=== PATIENT | male | born 1960 | race Two or more races ===

== ENCOUNTER 2023-02-14 07:00 | Day surgery (SDC) | payer MEDICAID ==
[~2023-02-14] VITALS: Ht 180.3 cm; Wt 85.3 kg
[~2023-02-14 07:00] MED LIST: ASPI-543 PO; ATOR10TA52 PO; BACL10TA PO; BUPR-346 PO; CETI10TA2 PO; CHOL20007 PO; FERR325T24 PO; GABA-1250 PO; MAGN400T40 PO; METO10TA3 PO; METO25TA5 PO; MONT-8 PO; PANT40T PO; SUCR1SUS25 PO; TRAZ-227 PO
[2023-02-14] MEDS ORDERED: LIDOCAINE 2%HCL (LOCAL ANESTH.) INJ 20ML MDV ONE (07:37)
[2023-02-14] MEDS ORDERED: IODIXANOL 320MG/ML 100ML BTL IV ONE ×2 (07:37→07:56)
[2023-02-14] MEDS ORDERED: VERAPAMIL 2.5MG/ML INJ 2ML VIAL IV ONE (07:43)
[2023-02-14] MEDS ORDERED: fentaNYL CITRATE 100 MCG/2 ML VL ONE (07:43)
[2023-02-14] MEDS ORDERED: ANGIOMAX 250 MG VIAL IV ONE (07:43)
[2023-02-14] MEDS ORDERED: SODIUM CHL 0.9% 0 ML ONE (07:44)
[2023-02-14] MEDS ORDERED: MIDAZOLAM HCL 2MG/2ML 2ml VIAL (1mg/ml) ONE (07:44)
[2023-02-14] MEDS ORDERED: ATROPINE SULF 1 MG/10ml SYR ONE (07:53)
[2023-02-14] MEDS ORDERED: HEPARIN SODIUM (PORCINE) 5000 UNITS/ML 1ML VIAL ONE (08:36)
== END 2023-02-14 10:55 | disposition home or self-care (01) ==
LOC: CATH 07:00
PROVIDERS: ATTEND Internal Medicine Cardiovascular Disease
DX: I25.10 Atherosclerotic heart disease of native coronary artery without angina pectoris (principal); I10 Essential (primary) hypertension; M19.90 Unspecified osteoarthritis, unspecified site; F17.210 Nicotine dependence, cigarettes, uncomplicated; Z79.1 Long term (current) use of non-steroidal anti-inflammatories (NSAID); Z79.82 Long term (current) use of aspirin; Z79.899 Other long term (current) drug therapy; Z98.890 Other specified postprocedural states
CPT/HCPCS: 93458; C1725; C1769; C1894; J1644; J2250; J3010; Q9967; 99152

== ENCOUNTER 2024-08-20 12:53 | Inpatient (IN) | payer MEDICAID ==
[~2024-08-20] VITALS: Ht 177.8 cm; Wt 85.0 kg
--- NOTE | 2024-08-20 13:10 | ECG ---
[facility] Test Date: 2024-08-20 Test Time: 13:03:44 Pat Name: RANJITH OLSON Department: ER Room: Gender: Veterinarian Assistant: JASMYN : 1960 Requested By: FELICITY HESS Order Number: [id number] Reading MD: Omega Martines Measurements Intervals [place] Rate: 114 P: 73 MI: 166 QRS: 47 QRSD: 79 T: 62 QT: 326 QTc: 449 Interpretive Statements Sinus tachycardia Consider left atrial enlargement Abnormal R-wave progression, early transition Electronically Signed On 08-20-2024 13:48:13 PDT by Omega Martines Please click the below link to view image of tracing.
--- NOTE | 2024-08-20 13:11 | ED.PDOC ---
History of Present Illness HPI Comments 64 year old male presents to the ED with chief complaint of ETOH withdrawals. Patient reports that his last drink of beer and whiskey was 5 days ago, normally drinking heavily. Patient relays that since then he has been experiencing tremors with associated left sided chest pain and generalized weakness. Patient denies any N/V, abdominal pain, SOB, or headache. Chief Complaint: Withdrawal Time Seen by MD: 13:09 Reviewed Notes: Nurses Notes, Medications, Allergies Allergies: Coded Allergies: NO KNOWN ALLERGIES (Unverified , 08/20/24) Home Meds Reported Medications Metoclopramide Hcl (Metoclopramide Hcl) 10 Mg Tab, 10 MG PO BID for GERD for 30 Days, MG 02/12/23 Atorvastatin Calcium (ATORVASTATIN CALCIUM) 10 Mg Tab, 1 TAB PO DAILY for DYSLIPIDEMIA, #30 TAB 5 Refills 02/12/23 Aspirin (Aspir-Low) 81 Mg Tab, 81 MG PO DAILY for CLOT PREVENTION, MG 02/12/23 Metoprolol Tartrate (Metoprolol Tartrate) 25 Mg Tab, 25 MG PO BID for HTN for 30 Days, MG 02/12/23 Magnesium Oxide (MAGNESIUM OXIDE) 400 Mg Tab, 1 TAB PO DAILY for SUPPLEMENT, #30 TAB 5 Refills 02/12/23 Sucralfate (Sucralfate) 1 Gm/10 Ml Nany, 1 GM PO QID for GERD, GM 02/12/23 Bupropion Hcl (Bupropion Hcl) 100 Mg Tab, 300 MG PO Q8HR for ANXIETY, MG 02/12/23 Trazodone Hcl (Trazodone Hcl) 50 Mg Tab, 50 MG PO DAILY for INSOMNIA, MG 02/12/23 Montelukast Sodium (MONTELUKAST SODIUM) 10 Mg Tab, 1 TAB PO DAILY for ALLERGIES, #30 TAB 5 Refills 02/12/23 Pantoprazole Sodium Sesquihydr (Pantoprazole Sodium) 40 Mg Tab, 40 MG PO BID for GERD, TAB 02/12/23 Cholecalciferol (VITAMIN D3) 2,000 Unit Tab, 1 TAB PO DAILY for SUPPLEMENT, #30 TAB 5 Refills 02/12/23 Cetirizine Hcl (Kls Aller-Celestina) 10 Mg Tab, 1 TAB PO DAILY for ALLERGIES, #30 TAB 3 Refills 02/12/23 Ferrous Sulfate (Ferrous Sulfate) 325 Mg Tab, 325 MG PO DAILY for LOW IRON, MG 02/12/23 Baclofen (Baclofen) 10 Mg Tab, 10 MG PO TID PRN for BACK PAIN, MG 02/12/23 Gabapentin (Gabapentin) 300 Mg Cap, 300 MG PO DAILY for NEUROPATHY, MG 02/12/23 Information Source: Patient Mode of Arrival: Wheelchair Severity: Moderate Timing: Days Duration: Since onset Prehospital treatment: None Past Medical History PAST MEDICAL HISTORY: Denies Surgical History: Denies all surgeries Family History Family History: Reviewed,noncontributory to illness Social History Smoker: Non-Smoker Alcohol: Heavy Drugs: Denies Drug Use Lives In: Home Constitutional: reports: weakness; denies: chills, diaphoresis, fatigue, fever, malaise, sweats, others EENTM: denies: blurred vision, double vision, ear bleeding, ear discharge, ear drainage, ear pain, ear ringing, eye pain, eye redness, hearing loss, mouth pain, mouth swelling, nasal discharge, nose bleeding, nose congestion, nose pain, photophobia, tearing, throat pain, throat swelling, voice changes, others Respiratory: denies: cough, hemoptysis, orthopnea, SOB at rest, shortness of breath, SOB with excertion, stridor, wheezing, others Cardiovascular: reports: chest pain; denies: dizzy spells, diaphoresis, Dyspnea on exertion, edema, irregular heart beat, left arm pain, lightheadedness, palpitations, PND, syncope, others Gastrointestinal: denies: abdomen distended, abdominal pain, blood streaked bowels, constipated, diarrhea, dysphagia, difficulty swallowing, hematemesis, melena, nausea, poor appetite, poor fluid intake, rectal bleeding, rectal pain, vomiting, others Genitourinary: denies: burning, dysuria, flank pain, frequency, hematuria, incontinence, penile discharge, penile sore, pain, testicle pain, testicle swelling, urgency, others Neurological: reports: tremors; denies: dizziness, fainting, headache, left sided numbness, left sided weakness, numbness, paresthesia, pre-existing deficit, right sided numbness, right sided weakness, seizure, speech problems, tingling, weakness, others Musculoskeletal: denies: back pain, gout, joint pain, joint swelling, muscle pain, muscle stiffness, neck pain, others Integumetry: denies: bruises, change in color, change in hair/nails, dryness, laceration, lesions, lumps, rash, wounds, others Allergic/Immunocompromised: denies: Difficulty Healing, Frequent Infections, Hives, Itching, others Hematologic/Lymphatic: denies: anemia, blood clots, easy bleeding, easy bruising, swollen glands, others Endocrine: denies: excessive hunger, excessive sweating, excessive thirst, excessive urination, flushing, intolerance to cold, intolerance to heat, un explained weight gain, unexplained weight loss, others Psychiatric: denies: anxiety, bipolar disorder, depression, hopeless, panic disorder, schizophrenia, sleepless, suicidal, others All Other Systems: Reviewed and Negative Physical Exam General Appearance: Moderate Distress, Normal HEENT: Normal ENT Inspection, PERRL/EOMI Neck: Full Range of Motion, Non-Tender, Normal, Normal Inspection Respiratory: Chest Non-Tender, Lungs Clear, No Accessory Muscle Use, No Respiratory Distress, Normal Breath Sounds Cardiovascular: No Edema, No JVD, No Murmur, No Gallop, Normal Peripheral Pulses, Tachycardia Breast Exam: Deferred Gastrointestinal: No Organomegaly, Non Tender, No Pulsatile Mass, Normal Bowel Sounds, Soft Genitalia: Deferred Pelvic: Deferred Rectal: Deferred Extremities: No calf tenderness, Normal capillary refill, Normal inspection, Normal range of motion, Non-tender, No pedal edema Musculoskeletal : Apperance: Normal Neurologic: Alert, router machine operator II-XII nml as Tested, No Motor Deficits, Normal Affect, Normal Mood, No Sensory Deficits Cerebellar Function: NOT DONE Reflexes: NOT DONE Skin: Dry, Normal Color, Warm Peripheral Pulses: 3+ Radial (R), 3+ Radial (L) Lymphatic: No Adenopathy Was a procedure done? Was a procedure done?: No EKG EKG : Pulse Rate (adult): 114 [place]: Normal Cardiac Rhythm: ST Block: None Hypertrophy: None ST: Normal Differential Dx Considerations may include: ETOH withdrawal X-Ray, Labs, Meds, VS Vital Signs Date Time Temp Pulse Resp B/P (MAP) Pulse Ox O2 Delivery O2 Flow Rate FiO2 08/20/24 13:19 98.4 109 17 142/86 (104) 98 98.4 08/20/24 13:19 109 17 98 Room Air 08/20/24 13:11 114 08/20/24 13:03 114 08/20/24 13:02 98.1 118 20 154/97 (116) 99 98.1 Lab Test 08/20/24 13:43 08/20/24 13:00 Range/Units White Blood Count 5.1 4.4-10.8 10^3/uL Red Blood Count 4.29 L 4.5-5.90 10^6/uL Hemoglobin 12.6 L 13.5-17.5 g/dL Hematocrit 37.9 L 41.0-53.0 % Mean Corpuscular Volume 88.5 80.0-100.0 fL Mean Corpuscular Hemoglobin 29.4 28.0-32.0 pg Mean Corpuscular Hemoglobin Concent 33.2 32.0-36.0 g/dL Red Cell Distribution Width 16.8 H 11.8-14.3 % Platelet Count 166 140-450 10^3/uL Mean Platelet Volume 7.1 6.9-10.8 fL Neutrophils (%) (Auto) 80.7 H 37.0-80.0 % Lymphocytes (%) (Auto) 8.0 L 10.0-50.0 % Monocytes (%) (Auto) 10.8 0.0-12.0 % Eosinophils (%) (Auto) 0.0 0.0-7.0 % Basophils (%) (Auto) 0.5 0.0-2.0 % Neutrophils # (Auto) 4.1 1.6-8.6 10 ^3/uL Lymphocytes # (Auto) 0.4 0.4-5.4 10 ^3/uL Monocytes # (Auto) 0.6 0-1.3 10 ^3/uL Eosinophils # (Auto) 0 0-0.8 10 ^3/uL Basophils # (Auto) 0 0-0.2 10 ^3/uL Nucleated Red Blood Cells 0.1 % Sodium Level Pending Potassium Level Pending Chloride Level Pending Carbon Dioxide Level Pending Anion Gap Pending Blood Urea Nitrogen Pending Creatinine Pending Glomerular Filtration Rate Calc Pending BUN/Creatinine Ratio Pending Serum Glucose Pending Calcium Level Pending Plasma/Serum Blood Alcohol Pending POC Glucose 107 H 70-106 mg/dl Current Medications Medications (Trade) Dose Ordered Sig/Alon Route Start Time Stop Time Status Last Admin Sodium Chloride 1,000 ml @ 1,000 mls/hr Q1H ONCE IV 4/18/25 13:30 08/20/24 14:29 08/20/24 13:23 Thiamine HCl 100 mg ONCE ONCE IV 08/20/24 13:30 08/20/24 13:31 DC 08/20/24 13:58 Sodium Chloride 1,000 ml @ 1,000 mls/hr Q1H ONCE IV 08/20/24 13:30 08/20/24 14:29 08/20/24 13:34 Lorazepam (Ativan Inj) 1 mg ONCE ONCE IV 08/20/24 13:30 08/20/24 13:31 DC 08/20/24 13:58 Patient alert. Vitals stable. He is withdrawing. Establish intravenous access. Was given fluids. Was given thiamine. Was given Ativan. He is tachycardic. Blood pressure elevated. Counseled patient effects of drinking for 15 minutes. Reviewed his history. Explained to the patient. EKG reviewed does not show any acute changes. Time of 1ST Reevaluation: 14:09 Reevaluation 1ST: Unchanged Patient Education/Counseling: Diagnosis, Treatment Family Education/Counseling: No Family Present Additional Information The following tests were ordered, and results were reviewed by me: CBC, BMP, ETOH, EKG Additional Information was gathered from interviewing the following independent historians: None I reviewed and agreed with the following test results read by other providers: None I discussed treatment and results with medical personnel and: Patient Comprehensive systems review obtained and negative except for what is stated in the HPI. Departure 1 Departure Time of Disposition: 14:00 Impression: Primary Impression: Alcohol withdrawal Qualified Codes: F10.930 - Alcohol use, unspecified with withdrawal, uncomplicated Additional Impression: HTN (hypertension) Qualified Codes: I10 - Essential (primary) hypertension Disposition: ADMITTED INPATIENT Admit to: Med Surg Condition: Guarded Critical Care Note Critical Care Time?: No Stability Stability form required: No Heart Score Heart Score: Heart Score Response (Comments) Value History N/A 0 EKG N/A 0 Age N/A 0 Risk Factors N/A 0 Troponin N/A 0 Total 0 I personally scribed for FELICITY HESS MD ([email or web address]) on 08/20/24 at 13:11. Electronically submitted by Talon Guillermo ([email or web address]). I personally scribed for FELICITY HESS MD ([email or web address]) on 08/20/24 at 13:51. Electronically submitted by Talon Guillermo ([email or web address]). FELICITY HESS MD Aug 20, 2024 13:11
[2024-08-20] MEDS: SODIUM CHLORIDE 0.9% 1,000 ML IV ONE ×3 (13:23→13:37)
[2024-08-20] MEDS: THIAMINE 100mg/ml INJ (200mg/2ml VIAL) IV ONE ×2 (13:58→16:16)
[2024-08-20] MEDS: LORazepam 2MG/ML-1ML VIAL IV ONE (13:58)
[2024-08-20 13:59] LABS: Basophils # (auto) 0 10 ^3/uL (0-0.2); Basophils % (auto) 0.5 % (0.0-2.0); Eosinophils # (auto) 0 10 ^3/uL (0-0.8); Hematocrit 37.9 % (41.0-53.0); Hemoglobin 12.6 g/dL (13.5-17.5); Lymphocytes # (auto) 0.4 10 ^3/uL (0.4-5.4); Mean Corpuscular Hemoglobin 29.4 pg (28.0-32.0); Mean Corpuscular Hgb Conc. 33.2 g/dL (32.0-36.0); Mean Corpuscular Volume 88.5 fL (80.0-100.0); Monocytes # (auto) 0.6 10 ^3/uL (0-1.3); Monocytes % (auto) 10.8 % (0.0-12.0); Neutrophils # (auto) 4.1 10 ^3/uL (1.6-8.6); Neutrophils % (auto) 80.7 % (37.0-80.0); Nucleated Red Blood Cells % 0.1 %; Platelet Count (auto) 166 10^3/uL (140-450); Red Blood Cells 4.29 10^6/uL (4.5-5.90); Red Cell Distribution Width 16.8 % (11.8-14.3); White Blood Cell 5.1 10^3/uL (4.4-10.8)
[2024-08-20 14:09] VITALS: PULSE 108; RESP 14; O2SAT 96
[2024-08-20 14:10] LABS: Potassium 4.6 mmol/L (3.5-5.1)
[2024-08-20 14:11] LABS: Anion Gap 16 (5-15); Carbon Dioxide 23 mmol/L (20-31)
[2024-08-20 14:15] LABS: Chloride 91 mmol/L (98-107); Sodium 130 mmol/L (136-145)
[2024-08-20 14:16] LABS: BUN/Creatinine Ratio 26.9 (10.0-20.0); Glucose 97 mg/dL (74-106)
[2024-08-20 14:17] LABS: Blood Urea Nitrogen 43 mg/dL (9-23)
[2024-08-20] MEDS ORDERED: FOLIC ACID 1 mg/0.2ml INJECTION INJ ONE (15:45)
[2024-08-20] MEDS: MAGNESIUM SULFATE 1GM/100ML 100 ML IV ONE (16:20)
[2024-08-20] MEDS ORDERED: chlordiazePOXIDE HCL 25 MG CAP PO PRN (22:15)
--- NOTE | 2024-08-20 23:01 | DVHPNRES ---
Progress Note Date Seen: Aug 20, 2024 Resident Creating Document: GLORIA MOBLEY RESIDENT Has the PT tested + for MRSA If YES, has PT been informed?: No Medical Necessity Reason Pt with a Central, PICC or Fol: No Medical Necessity Reason 64 year old male presents to the ED with chief complaint of ETOH withdrawals. Patient reports that his last drink of beer and whiskey was 5 days ago, normally drinking heavily. Patient relays that since then he has been experiencing tremors with associated left sided chest pain and generalized weakness. Patient denies any N/V, abdominal pain, SOB, or headache. Subjective Review of Systems Unable to obtain thorough review of systems from this patient also patient was intoxicated and was limited or has poverty of words. Constitutional: Denies fever no chills no feeling of malaise HEENT: Denies headache, ear pain, ear discharges, conjunctivitis, nasal discharge throat pain Cardiovascular: Denies chest pain, palpitation, orthopnea, PND, or pedal edema Respiratory: Denies shortness of breath, cough cough, sputum production, hemoptysis, GI: Denies abdominal pain, nausea, vomiting, diarrhea, hematemesis, hematochezia, : Denies frequency, urgency, hematuria, Endocrine: Denies unintentional weight gain or weight loss, feeling of hot flashes, Devyn: Denies easy bruising, bleeding disorders, epistaxis Musculoskeletal: Denies joint pains, muscle aches Psych: No evidence of depression, jorge, suicidal ideation Objective vital signs Vital Sign Date Time Temp Pulse Resp B/P (MAP) Pulse Ox O2 Delivery O2 Flow Rate FiO2 08/20/24 19:44 98.5 126 16 133/80 (97) 96 98.5 08/20/24 14:09 Nasal Cannula* 2 28 medications Current Medications Medications Dose Ordered Sig/Alon Route Start Time Stop Time Status Last Admin Dose Admin Chlordiazepoxide HCl 25 mg Q6HPRN PRN PO 08/20/24 22:15 Examination General Appearance: Alert, Oriented X3, Cooperative, obvious Tremors HEENT: Atraumatic, PERRLA, EOMI, Mucous membrane moist/pink Respiratory: Clear to auscultation, Normal air movement Cardiovascular: Regular rate, Normal S1, Normal S2, No murmurs, no chest wall tenderness Abdominal: NO distention, no tenderness, bowel sounds present, no scars noted Extremities: No clubbing, No cyanosis, No edema, Normal pulses, No tenderness/swelling Skin: No rashes, No breakdown, No significant lesion Neuro: Normal gait, Normal speech, Strength at 5/5 X4 ext, Normal tone, Sensation intact, Cranial nerves 3-12 NL, Reflexes 2+ Psych/Mental Status: menitioned auditory hallucination but is not new CIWA: Nausea; +6 Tremors: 5 Visual haluccination: 4 paroxysmal sweats +4 - Total: 19 laboratory and microbiology Laboratory Tests 08/20/24 13:43 Test 08/20/24 13:43 Range/Units Serum Glucose 97 74-106 mg/dL Problem List/Assessment/Plan Problem List/Assessment/Plan Assessment Alcohol withdrawal --> 2 bottles of Reagan Anthony in 3 days --> CIWA score of 19 --> Ativan q.2 hours PRN until CIWA score less than 8 --> Vitamin B12 --> Folate daily Hyponatremia --> Na: 130 --> Monitor electrolytes closely Hypertension --> 159/99--> 133/80 Nausea --> Pending EKG --> zofran if qtc is not prolong Normocytic Anemia --> hb;12.6 --> RDW: 16.8 LAVERN likely due to VMN --> On fluid. --> reasses in the morning Urinalysis pending Urine drug test pending Goal of care discussed for more than 18 minute: Full code Case and plan discussed with Dr. Jose C Bruce discussed with: Patient My Orders My Orders Orders - GLORIA MOBLEY Procedure Category Date Status Time Admit ADMIT 08/20/24 Transmitted 15:38 Code Status CODE 08/20/24 Transmitted 15:38 Vital Signs [facility] 08/20/24 In Process 15:38 Review Orders With BRANDON 08/20/24 In Process Adm. 15:38 Notify Of Changes BRANDON 08/20/24 In Process From Base 15:38 Advance Directive [facility] 08/20/24 In Process 15:38 Urinalysis LAB 08/20/24 Logged 15:38 Patient Condition ORDERS 08/20/24 Transmitted 15:38 Allergies BRANDON 08/20/24 In Process 15:38 Drug Screen LAB 08/20/24 Logged 15:38 Notify Of Changes BRANDON 08/20/24 In Process From Base 15:38 GLORIA MOBLEY Aug 20, 2024 23:00
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
[2024-08-20 23:06] VITALS: BP 138/82; PULSE 96; RESP 20; TEMP 98.1; O2SAT 99
[2024-08-21] VITALS (11 sets, daily range): BP systolic 134–172; BP diastolic 62–108; PULSE 79–112; RESP 18–20; TEMP 97.6–98.6; O2SAT 96–100
[2024-08-21] MEDS: CYANOCOBALAMIN 500 MCG TAB PO ONE (00:29)
--- NOTE | 2024-08-21 02:37 | DVH ---
CHEST RADIOGRAPH Indication: rule out aspiration Technique: Single frontal view of the chest was obtained COMPARISON: None FINDINGS: Lines and Tubes: None Lungs: Clear Pleura: No effusion. No pneumothorax. Cardiomediastinal contours: Unremarkable Bones: Unremarkable IMPRESSION: 1. No acute disease.
[2024-08-21 05:49] LABS: Basophils # (auto) 0.1 10 ^3/uL (0-0.2); Basophils % (auto) 1.4 % (0.0-2.0); Eosinophils # (auto) 0 10 ^3/uL (0-0.8); Eosinophils % (auto) 0.5 % (0.0-7.0); Hematocrit 37.5 % (41.0-53.0); Hemoglobin 12.4 g/dL (13.5-17.5); Lymphocytes # (auto) 0.7 10 ^3/uL (0.4-5.4); Mean Corpuscular Hemoglobin 29.3 pg (28.0-32.0); Mean Corpuscular Hgb Conc. 33.2 g/dL (32.0-36.0); Mean Corpuscular Volume 88.3 fL (80.0-100.0); Monocytes # (auto) 0.6 10 ^3/uL (0-1.3); Monocytes % (auto) 13.1 % (0.0-12.0); Neutrophils # (auto) 3.4 10 ^3/uL (1.6-8.6); Nucleated Red Blood Cells % 0.3 %; Platelet Count (auto) 141 10^3/uL (140-450); Red Blood Cells 4.25 10^6/uL (4.5-5.90); Red Cell Distribution Width 16.4 % (11.8-14.3); White Blood Cell 4.9 10^3/uL (4.4-10.8)
[2024-08-21 06:14] LABS: Albumin 4.5 g/dL (3.2-4.8); Alkaline Phosphatase 104 U/L (46-116); Anion Gap 13 (5-15); BUN/Creatinine Ratio 24.8 (10.0-20.0); Calcium 9.2 mg/dL (8.7-10.4); Carbon Dioxide 24 mmol/L (20-31); Glucose 86 mg/dL (74-106); Potassium 3.7 mmol/L (3.5-5.1)
[2024-08-21 06:15] LABS: Alanine Aminotransferase 77 U/L (7-40); Aspartate Aminotransferase 142 U/L (13-40); Bilirubin, Total 1.4 mg/dL (0.2-1.0); Blood Urea Nitrogen 31 mg/dL (9-23); Chloride 97 mmol/L (98-107); Sodium 134 mmol/L (136-145)
[2024-08-21] MEDS: FOLIC ACID 1 MG in D5W 5% 50 ML INJ SCH (10:21)
[2024-08-21] MEDS: LORazepam 2MG/ML-1ML VIAL IV PRN (10:22)
[2024-08-21] MEDS: CYANOCOBALAMIN 500 MCG TAB PO SCH (10:22)
--- NOTE | 2024-08-21 12:44 | DVHPN2 ---
Reviewed: Care Plan, H&P, Labs, Medications, Previous Orders, Radiology Changes from previous H/P or p: No Changes Objective Vitals Vital Signs Date Time Temp Pulse Resp B/P (MAP) Pulse Ox O2 Delivery O2 Flow Rate FiO2 08/21/24 09:00 98.6 94 19 170/108 (128) 97 98.6 08/21/24 08:00 Room Air* 0 21 Intake/Output Intake and Output 08/21/24 07:00 Intake Total 2400 ml Balance 2400 ml Intake Oral 400 ml IV Total 2000 ml # Voids 2 # Bowel Movements 2 Medications Current Medications Medications Dose Ordered Sig/Alon Route Start Time Stop Time Status Last Admin Dose Admin Chlordiazepoxide HCl 25 mg Q6HPRN PRN PO 08/20/24 22:15 Hold Lorazepam 1 mg Q2HP PRN IV 08/20/24 23:00 08/21/24 10:22 1 MG Folic Acid 1 mg/ Magnesium Sulfate 8 meq/ Multivitamins 10 ml/Thiamine HCl 100 mg/Sodium Chloride 1,013.2 ml @ 126.247 mls/hr DAILY@1800 INJ 08/21/24 18:00 Cyanocobalamin 500 mcg DAILY PO 08/21/24 10:00 08/21/24 10:22 500 MCG Folic Acid 1 mg/ Dextrose 50.2 ml @ 200.8 mls/ hr DAILY INJ 08/21/24 10:00 08/21/24 10:21 200.8 MLS/HR Laboratory Results Laboratory Tests 08/21/24 05:03 Chemistry Test 08/20/24 13:43 08/21/24 05:03 Calcium Level 9.0 mg/dL (8.7-10.4) 9.2 mg/dL (8.7-10.4) Magnesium Level 1.8 mg/dL (1.6-2.6) Albumin 4.5 g/dL (3.2-4.8) Total Protein 7.0 g/dL (5.7-8.2) LFT Test 08/21/24 05:03 Alanine Aminotransferase (ALT) 77 U/L (7-40) H Alkaline Phosphatase 104 U/L (46-116) Aspartate Amino Transferase (AST) 142 U/L (13-40) H Total Bilirubin 1.4 mg/dL (0.2-1.0) H HgA1c, TSH Test 08/20/24 13:43 Hemoglobin A1c 5.0 % A1C (<5.7) Labs and/or images reviewed: Labs reviewed by me, Image(s) reviewed by me Assessment/Plan Assessment/Plan Acute alcoholic withdrawal Acute hyponatremia Hypertension Nausea LAVERN versus IPMN Acute dehydration: IV fluids Slightly elevated liver function tests probably secondary to chronic alcohol abuse Homeless: Social service consult Plan discussed with: Patient Date of Service: Aug 21, 2024 Billing Provider: EVA MARINA MD Common Visit Codes: [id number] INP/OBS CARE(HIGH) EVA MARINA MD Aug 21, 2024 12:44
[2024-08-21] MEDS: LACTATED RINGER'S 1,000 ML IV SCH (14:15)
[2024-08-21] MEDS: chlordiazePOXIDE HCL 25 MG CAP PO SCH (14:19)
[2024-08-21 14:42] LABS: INR 1.03 (0.9-1.15); Partial Thromboplastin Time 25.9 SEC (24.5-34.5); Prothrombin Time 10.9 sec (9.3-11.8)
[2024-08-21] MEDS: LOPERAMIDE HCL 2 MG CAP/TAB PO PRN (15:13)
[2024-08-21] MEDS: FOLIC ACID 1 MG, MAGNESIUM SULF SDV 50% 8 MEQ, MULTIPLE VITAMIN 10 ML, THIAMINE INJ 100... INJ SCH (17:30)
[2024-08-21] MEDS: FOLIC ACID 1 MG in D5W 5% 50 ML INJ ONE (21:27)
[2024-08-22] VITALS (9 sets, daily range): BP systolic 142–175; BP diastolic 78–103; PULSE 80–97; RESP 15–20; TEMP 97.1–98.2; O2SAT 95–98
--- NOTE | 2024-08-22 08:38 | DVHPN2 ---
Reviewed: Care Plan, H&P, Labs, Medications, Previous Orders, Radiology Changes from previous H/P or p: No Changes Objective Vitals Vital Signs Date Time Temp Pulse Resp B/P (MAP) Pulse Ox O2 Delivery O2 Flow Rate FiO2 08/22/24 05:00 97.1 90 19 142/96 (111) 96 97.1 08/21/24 19:30 Room Air* 0 21 Intake/Output Intake and Output 08/22/24 07:00 Intake Total 3263.40 ml Output Total 300 ml Balance 2963.40 ml Intake Oral 1000 ml IV Total 2263.40 ml Output Urine Total 300 ml # Voids 3 # Bowel Movements 2 Medications Current Medications Medications Dose Ordered Sig/Alon Route Start Time Stop Time Status Last Admin Dose Admin Chlordiazepoxide HCl 25 mg Q6HPRN PRN PO 08/20/24 22:15 Hold Lorazepam 1 mg Q2HP PRN IV 08/20/24 23:00 08/21/24 10:22 1 MG Folic Acid 1 mg/ Magnesium Sulfate 8 meq/ Multivitamins 10 ml/Thiamine HCl 100 mg/Sodium Chloride 1,013.2 ml @ 126.247 mls/hr DAILY@1800 INJ 08/21/24 18:00 08/21/24 17:30 126.247 MLS/HR Cyanocobalamin 500 mcg DAILY PO 08/21/24 10:00 08/21/24 10:22 500 MCG Folic Acid 1 mg/ Dextrose 50.2 ml @ 200.8 mls/ hr DAILY INJ 08/21/24 10:00 08/21/24 10:21 200.8 MLS/HR Chlordiazepoxide HCl 50 mg Q12HR PO 08/22/24 10:00 08/22/24 22:01 Chlordiazepoxide HCl 25 mg Q12HR PO 08/23/24 10:00 08/23/24 22:01 Chlordiazepoxide HCl 25 mg QAM PO 08/24/24 07:00 08/24/24 07:01 Lactated Ringer's 1,000 ml @ 125 mls/hr Q8H IV 08/21/24 14:15 08/22/24 05:08 125 MLS/HR Loperamide HCl 2 mg Q4HP PRN PO 08/21/24 14:30 08/21/24 21:23 2 MG Laboratory Results Laboratory Tests 08/21/24 05:03 Coagulation Test 08/21/24 14:15 Prothrombin Time 10.9 sec (9.3-11.8) Prothrombin Time INR 1.03 (0.9-1.15) Activated Partial Thromboplast Time 25.9 SEC (24.5-34.5) Labs and/or images reviewed: Labs reviewed by me, Image(s) reviewed by me Assessment/Plan Assessment/Plan Acute alcoholic withdrawal Acute hyponatremia Hypertension Nausea LAVERN versus VMN Acute dehydration: IV fluids Slightly elevated liver function tests probably secondary to chronic alcohol abuse Homeless: Social service consult Plan discussed with: Patient My Orders Orders - EVA MARINA MD Procedure Category Date Status Time Chlordiazepoxide Hcl PHA 08/22/24 In Process Capsule (Librium Ca 10:00 Chlordiazepoxide Hcl PHA 08/23/24 In Process Capsule (Librium Ca 10:00 Chlordiazepoxide Hcl PHA 08/24/24 In Process Capsule (Librium Ca 07:00 Cardiac DIET 08/21/24 Transmitted Diet-2gna,Lofat,Lochol Dinner Lactated Ringer's PHA 08/21/24 In Process 14:15 Loperamide Capsule PHA 08/21/24 In Process (Imodium Capsule) 14:30 * Pmp Certified Project Manager CONS 08/21/24 Transmitted Consult Date of Service: Aug 22, 2024 Billing Provider: EVA MARINA MD Common Visit Codes: [id number] INP/OBS CARE(HIGH) EVA MARINA MD Aug 22, 2024 08:38
[2024-08-22] MEDS: chlordiazePOXIDE HCL 25 MG CAP PO SCH (09:57)
[2024-08-22] MEDS: THIAMINE HCL 100 MG TAB PO ONE (16:35)
[2024-08-22] MEDS: FOLIC ACID 1 MG TAB PO ONE (16:35)
[2024-08-22] MEDS: MAGNESIUM OXIDE 400 MG TAB PO ONE (16:36)
[2024-08-22] MEDS: MULTIPLE VITAMIN TAB PO ONE (16:36)
[2024-08-22] MEDS: MELATONIN 5 MG TAB PO ONE (23:35)
[2024-08-23] VITALS (9 sets, daily range): BP systolic 133–166; BP diastolic 93–111; PULSE 68–102; RESP 16–18; TEMP 97.3–98.1; O2SAT 94–98
[2024-08-23] MEDS: cloNIDine HCL 0.1 MG TAB PO PRN (04:27)
[2024-08-23 07:54] LABS: Basophils # (auto) 0 10 ^3/uL (0-0.2); Basophils % (auto) 0.6 % (0.0-2.0); Eosinophils # (auto) 0.1 10 ^3/uL (0-0.8); Hematocrit 32.7 % (41.0-53.0); Hemoglobin 11.1 g/dL (13.5-17.5); Lymphocytes # (auto) 0.9 10 ^3/uL (0.4-5.4); Lymphocytes % (auto) 27.5 % (10.0-50.0); Mean Corpuscular Hemoglobin 29.5 pg (28.0-32.0); Mean Corpuscular Hgb Conc. 33.9 g/dL (32.0-36.0); Mean Corpuscular Volume 87.1 fL (80.0-100.0); Monocytes # (auto) 0.4 10 ^3/uL (0-1.3); Monocytes % (auto) 11.9 % (0.0-12.0); Neutrophils # (auto) 1.8 10 ^3/uL (1.6-8.6); Nucleated Red Blood Cells % 0.1 %; Platelet Count (auto) 125 10^3/uL (140-450); Red Blood Cells 3.76 10^6/uL (4.5-5.90); Red Cell Distribution Width 16.2 % (11.8-14.3); White Blood Cell 3.2 10^3/uL (4.4-10.8)
[2024-08-23 08:09] LABS: Alkaline Phosphatase 81 U/L (46-116); Anion Gap 9 (5-15); BUN/Creatinine Ratio 17.4 (10.0-20.0); Blood Urea Nitrogen 16 mg/dL (9-23); Calcium 9.1 mg/dL (8.7-10.4); Carbon Dioxide 29 mmol/L (20-31); Chloride 102 mmol/L (98-107); Sodium 140 mmol/L (136-145)
[2024-08-23 08:10] LABS: Albumin 3.4 g/dL (3.2-4.8); Bilirubin, Total 0.6 mg/dL (0.2-1.0)
[2024-08-23 08:11] LABS: Alanine Aminotransferase 79 U/L (7-40); Aspartate Aminotransferase 82 U/L (13-40); Glucose 107 mg/dL (74-106); Potassium 3.3 mmol/L (3.5-5.1); Total Protein 5.3 g/dL (5.7-8.2)
--- NOTE | 2024-08-23 08:22 | ECG ---
[facility] Test Date: 2024-08-21 Test Time: 00:50:49 Pat Name: RANJITH OLSON Department: Respiratoy Room: 0214T B Gender: M Early Intervention Specialist: MARY : 1960 Requested By: GLORIA MOBLEY Order Number: [id number] Reading MD: Omega Martines Measurements Intervals [place] Rate: 97 P: 54 MS: 165 QRS: 22 QRSD: 104 T: 39 QT: 366 QTc: 465 Interpretive Statements Sinus rhythm Consider left atrial enlargement Abnormal R-wave progression, early transition Electronically Signed On 08-25-2024 12:13:09 PDT by Omega Martines Please click the below link to view image of tracing.
--- NOTE | 2024-08-23 08:22 | DVHPN2 ---
Reviewed: Care Plan, H&P, Labs, Medications, Previous Orders, Radiology Changes from previous H/P or p: No Changes Objective Vitals Vital Signs Date Time Temp Pulse Resp B/P (MAP) Pulse Ox O2 Delivery O2 Flow Rate FiO2 08/23/24 05:27 158/111 08/23/24 05:00 97.3 84 18 97 97.3 08/22/24 20:00 Room Air* 0 21 Intake/Output Intake and Output 08/23/24 07:00 Intake Total 2260 ml Output Total 1625 ml Balance 635 ml Intake Oral 1260 ml IV Total 1000 ml Output Urine Total 1625 ml # Voids 3 # Bowel Movements 1 Medications Current Medications Medications Dose Ordered Sig/Alon Route Start Time Stop Time Status Last Admin Dose Admin Chlordiazepoxide HCl 25 mg Q6HPRN PRN PO 08/20/24 22:15 Hold Lorazepam 1 mg Q2HP PRN IV 08/20/24 23:00 08/21/24 10:22 1 MG Cyanocobalamin 500 mcg DAILY PO 08/21/24 10:00 08/22/24 09:57 500 MCG Chlordiazepoxide HCl 25 mg Q12HR PO 08/23/24 10:00 08/23/24 22:01 Chlordiazepoxide HCl 25 mg QAM PO 08/24/24 07:00 08/24/24 07:01 Lactated Ringer's 1,000 ml @ 125 mls/hr Q8H IV 08/21/24 14:15 08/23/24 06:10 125 MLS/HR Loperamide HCl 2 mg Q4HP PRN PO 08/21/24 14:30 08/22/24 21:41 2 MG Clonidine HCl 0.2 mg Q6HP PRN PO 08/22/24 08:45 08/23/24 04:27 0.2 MG Folic Acid 1 mg DAILY PO 08/23/24 10:00 Multivitamins 1 tab DAILY PO 08/23/24 10:00 Magnesium Oxide 400 mg DAILY PO 08/23/24 10:00 Thiamine HCl 100 mg DAILY PO 08/23/24 10:00 Laboratory Results Laboratory Tests 08/23/24 06:25 Chemistry Test 08/23/24 06:25 Albumin 3.4 g/dL (3.2-4.8) Calcium Level 9.1 mg/dL (8.7-10.4) Total Protein 5.3 g/dL (5.7-8.2) L LFT Test 08/23/24 06:25 Alanine Aminotransferase (ALT) 79 U/L (7-40) H Alkaline Phosphatase 81 U/L (46-116) Aspartate Amino Transferase (AST) 82 U/L (13-40) H Total Bilirubin 0.6 mg/dL (0.2-1.0) Labs and/or images reviewed: Labs reviewed by me, Image(s) reviewed by me Assessment/Plan Assessment/Plan Acute alcoholic withdrawal : Improving Acute hyponatremia Hypertension Nausea LAVERN versus VMN Acute dehydration: IV fluids Slightly elevated liver function tests probably secondary to chronic alcohol abuse: Consult for GI Dr. Kiran Hernández, ordered hep panel Homeless: Social service consult Plan discussed with: Patient My Orders Orders - EVA MARINA MD Procedure Category Date Status Time Clonidine Hcl Tablet PHA 08/22/24 In Process (Catapres Tablet) 08:45 Comprehensive LAB 08/23/24 Transmitted Hepatitis Panel 08:16 Date of Service: Aug 23, 2024 Billing Provider: EVA MARINA MD Common Visit Codes: [id number] INP/OBS CARE(HIGH) EVA MARINA MD Aug 23, 2024 08:22
[2024-08-23] MEDS: POTASSIUM EFFERVESENT TAB 25 MEQ PO ONE (08:55)
[2024-08-23] MEDS: FOLIC ACID 1 MG TAB PO SCH (08:56)
[2024-08-23] MEDS: MULTIPLE VITAMIN TAB PO SCH (08:56)
[2024-08-23] MEDS: THIAMINE HCL 100 MG TAB PO SCH (08:56)
[2024-08-23] MEDS: chlordiazePOXIDE HCL 25 MG CAP PO SCH (08:56)
[2024-08-23] MEDS: MAGNESIUM OXIDE 400 MG TAB PO SCH (08:56)
[2024-08-23 10:25] LABS: Hepatitis B Core Total AB Negative (Negative)
[2024-08-23 10:53] LABS: Hepatitis A Total Antibody Negative (Negative); Hepatitis B Surface Antibody Negative (Negative); Hepatitis B Surface Antigen Negative (Negative); Hepatitis C Antibody Negative (Negative)
[2024-08-23] MEDS: PANTOPRAZOLE 40 MG/10 ML VIAL INJ IV SCH (12:29)
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
--- NOTE | 2024-08-23 15:56 | DVH ---
INDICATION: elevated liver tests TECHNIQUE: Multiple real-time sonographic images were obtained of the right upper quadrant. COMPARISON: None FINDINGS: The liver demonstrates heterogeneous echotexture without focal mass lesions. The liver sophia ures 17cm. There is no intrahepatic or extrahepatic ductal dilatation. The common duct measures 0. 4 mm. The gallbladder is without evidence of stone or sludge. The gallbladder wall measures 0.2 mm and is within normal limits. The right kidney measures 9 cm. The right kidney is normal in contour, size, and shape. The echogeni city is normal. There is no hydronephrosis. The pancreas is not well visualized due to overlying bowel gas. IMPRESSION: No sonographic evidence of gallstones or acute cholecystitis. Hepatic steatosis.
[2024-08-23] MEDS: HYDROcodone-ACET 7.5/325MG TAB PO ONE (21:50)
[2024-08-23] MEDS: MELATONIN 5 MG TAB PO ONE (21:50)
[2024-08-23] MEDS ORDERED: MELATONIN 5 MG TAB PO ONE (22:00)
[2024-08-24 00:24] VITALS: BP 153/92; PULSE 90; RESP 16; TEMP 98.1; O2SAT 99
[2024-08-24 05:00] VITALS: BP 132/83; PULSE 76; RESP 18; TEMP 98.1; O2SAT 97
[2024-08-24] MEDS: chlordiazePOXIDE HCL 25 MG CAP PO SCH (06:11)
[2024-08-24 07:36] VITALS: PULSE 60
[2024-08-24 08:00] VITALS: O2SAT 96
[2024-08-24] MEDS ORDERED: THIA100T26 PO (08:28)
[2024-08-24] MEDS ORDERED: PANT40T PO (08:28)
[2024-08-24] MEDS ORDERED: CHL25C PO (08:28)
[2024-08-24] MEDS ORDERED: FOLI-119 PO (08:28)
[2024-08-24] MEDS ORDERED: MULT-1018 PO (08:28)
--- NOTE | 2024-08-24 08:30 | DVHPN2 ---
Reviewed: Care Plan, H&P, Labs, Medications, Previous Orders, Radiology Changes from previous H/P or p: No Changes Objective Vitals Vital Signs Date Time Temp Pulse Resp B/P (MAP) Pulse Ox O2 Delivery O2 Flow Rate FiO2 08/24/24 05:00 98.1 76 18 132/83 (99) 97 98.1 08/23/24 20:00 Room Air* 0 21 Intake/Output Intake and Output 08/24/24 07:00 Intake Total 3058 ml Output Total 1275 ml Balance 1783 ml Intake Oral 1308 ml IV Total 1750 ml Stool Total 1275 ml # Voids 3 Medications Current Medications Medications Dose Ordered Sig/Alon Route Start Time Stop Time Status Last Admin Dose Admin Chlordiazepoxide HCl 25 mg Q6HPRN PRN PO 08/20/24 22:15 Hold Lorazepam 1 mg Q2HP PRN IV 08/20/24 23:00 08/21/24 10:22 1 MG Cyanocobalamin 500 mcg DAILY PO 08/21/24 10:00 08/23/24 08:56 500 MCG Lactated Ringer's 1,000 ml @ 125 mls/hr Q8H IV 08/21/24 14:15 08/24/24 00:12 125 MLS/HR Loperamide HCl 2 mg Q4HP PRN PO 08/21/24 14:30 08/23/24 08:58 2 MG Clonidine HCl 0.2 mg Q6HP PRN PO 08/22/24 08:45 08/23/24 04:27 0.2 MG Folic Acid 1 mg DAILY PO 08/23/24 10:00 08/23/24 08:56 1 MG Multivitamins 1 tab DAILY PO 08/23/24 10:00 08/23/24 08:56 1 TAB Magnesium Oxide 400 mg DAILY PO 08/23/24 10:00 08/23/24 08:56 400 MG Thiamine HCl 100 mg DAILY PO 08/23/24 10:00 08/23/24 08:56 100 MG Pantoprazole Sodium 40 mg DAILY IV 08/23/24 11:15 08/23/24 12:29 40 MG Laboratory Results Laboratory Tests 08/23/24 06:25 Labs and/or images reviewed: Labs reviewed by me, Image(s) reviewed by me Assessment/Plan Assessment/Plan Acute alcoholic withdrawal : Resolved Acute hyponatremia Hypertension Nausea LAVERN versus VMN Acute dehydration: IV fluids Slightly elevated liver function tests probably secondary to chronic alcohol abuse: Consult for GI Dr. Kiran Hernández appreciated, Hepatitis panel negative, Liver ultrasound negative Plan discussed with: Patient My Orders Orders - EVA MARINA MD Procedure Category Date Status Time * Sausage Inspector CONS 08/24/24 Transmitted Consult Date of Service: Aug 24, 2024 Billing Provider: EVA MARINA MD Common Visit Codes: [id number] INP/OBS CARE(HIGH) EVA MARINA MD Aug 24, 2024 08:29
--- NOTE | 2024-08-24 08:33 | DVHDS2 ---
Discharge Summary Date of Admission Aug 20, 2024 at 15:38 Date of Discharge: Aug 24, 2024 Admitting Diagnosis Abdominal pain nausea and vomiting Wounds: None Labs/Diagnostic Data: Laboratory Results Test 08/23/24 06:25 08/21/24 14:15 08/20/24 13:43 08/20/24 13:00 White Blood Count 3.2 10^3/uL (4.4-10.8) Red Blood Count 3.76 10^6/uL (4.5-5.90) Hemoglobin 11.1 g/dL (13.5-17.5) Hematocrit 32.7 % (41.0-53.0) Mean Corpuscular Volume 87.1 fL (80.0-100.0) Mean Corpuscular Hemoglobin 29.5 pg (28.0-32.0) Mean Corpuscular Hemoglobin Concent 33.9 g/dL (32.0-36.0) Red Cell Distribution Width 16.2 % (11.8-14.3) Platelet Count 125 10^3/uL (140-450) Mean Platelet Volume 7.7 fL (6.9-10.8) Neutrophils (%) (Auto) 57.0 % (37.0-80.0) Lymphocytes (%) (Auto) 27.5 % (10.0-50.0) Monocytes (%) (Auto) 11.9 % (0.0-12.0) Eosinophils (%) (Auto) 3.0 % (0.0-7.0) Basophils (%) (Auto) 0.6 % (0.0-2.0) Neutrophils # (Auto) 1.8 10 ^3/uL (1.6-8.6) Lymphocytes # (Auto) 0.9 10 ^3/uL (0.4-5.4) Monocytes # (Auto) 0.4 10 ^3/uL (0-1.3) Eosinophils # (Auto) 0.1 10 ^3/uL (0-0.8) Basophils # (Auto) 0 10 ^3/uL (0-0.2) Nucleated Red Blood Cells 0.1 % Sodium Level 140 mmol/L (136-145) Potassium Level 3.3 mmol/L (3.5-5.1) Chloride Level 102 mmol/L (98-107) Carbon Dioxide Level 29 mmol/L (20-31) Anion Gap 9 (5-15) Blood Urea Nitrogen 16 mg/dL (9-23) Creatinine 0.92 mg/dL (0.700-1.30) Glomerular Filtration Rate Calc 93 mL/min (>90) BUN/Creatinine Ratio 17.4 (10.0-20.0) Serum Glucose 107 mg/dL (74-106) Calcium Level 9.1 mg/dL (8.7-10.4) Total Bilirubin 0.6 mg/dL (0.2-1.0) Aspartate Amino Transferase (AST) 82 U/L (13-40) Alanine Aminotransferase (ALT) 79 U/L (7-40) Alkaline Phosphatase 81 U/L (46-116) Total Protein 5.3 g/dL (5.7-8.2) Albumin 3.4 g/dL (3.2-4.8) Hepatitis A Antibody Total Negative (Negative) Hepatitis B Surface Antigen Negative (Negative) Hepatitis B Surface Antibody Negative (Negative) Hepatitis B Core Total Antibody Negative (Negative) Hepatitis C Antibody Negative (Negative) Prothrombin Time 10.9 sec (9.3-11.8) Prothrombin Time INR 1.03 (0.9-1.15) Activated Partial Thromboplast Time 25.9 SEC (24.5-34.5) Hemoglobin A1c 5.0 % A1C (<5.7) Magnesium Level 1.8 mg/dL (1.6-2.6) Plasma/Serum Blood Alcohol 5.0 mg/dL (<10) POC Glucose 107 mg/dl (70-106) Other Laboratory Tests 08/23/24 06:25 Brief Hx & Hospital Course: 64-year-old male with a chronic alcohol abuse admitted for alcoholic withdrawal treated with IV fluids Librium. Acute dehydration resolved LAVERN resolved . Seen by GI Dr. Kiran Hernández hepatitis panel negative liver ultrasound negative at the time of discharge patient is afebrile and comfortable stable vital signs discharged home prescription transmitted to pharmacy . He was advised to stop drinking alcohol Consults/Reason for consult STEPHANIE Hernández Operations or Procedures CT abdomen pelvis without contrast Gallbladder ultrasound Condition at Discharge: Fair Final Diagnosis/Problems List Acute alcoholic withdrawal : Resolved Acute hyponatremia Hypertension Nausea LAVERN versus VMN Acute dehydration: IV fluids Slightly elevated liver function tests probably secondary to chronic alcohol abuse: Consult for GI Dr. Kiran Hernández appreciated, Hepatitis panel negative, Liver ultrasound negative Discharge Disposition: Home Discharge Instruct/Medications Diet: Regular Activity: Light activity Follow Up/Referral: Stop drinking alcohol Follow up with the primary Dr in one week Use medications as prescribed Medications: Thiamine Folic acid Multivitamin Librium Pantoprazole Transmitted to pharmacy 36 (Time taken for discharge summary 36 minutes) Discharge Statement: "Patient was advised to return to the ER or call 911 if any headaches, dizziness, shortness of breath, chest pain, abdominal pain, bleeding, fevers, or worsening of medical condition. Patient was counseled about treatment plan, medications, possible side effects, patientverbalized understanding. All questions were answered to the best of my ability. This discharge took greater then 30 minutes in planning, reviewing documentation, counseling the patient, and discussing with other team members." ASSESSMENT ASSESSMENT Hospital Course Improved Assessment Acute alcoholic withdrawal : Resolved Acute hyponatremia Hypertension Nausea LAVERN versus VMN Acute dehydration: IV fluids Slightly elevated liver function tests probably secondary to chronic alcohol abuse: Consult for GI Dr. Kiran Hernández appreciated, Hepatitis panel negative, Liver ultrasound negative Date of Service: Aug 24, 2024 Billing Provider: EVA MARINA MD Common Visit Codes: [id number] DISCH DAY >30min EVA MARINA MD Aug 24, 2024 08:33
[2024-08-24 09:00] VITALS: BP 166/97; PULSE 70; RESP 18; TEMP 98.1; O2SAT 96
== END 2024-08-24 11:35 | disposition home or self-care (01) | DRG 426 ==
LOC: ER 12:53 → OVERFLOW 15:38 → CENTRAL 22:38 → TELE-CENTR 08-21 08:28
PROVIDERS: ADMIT Family Medicine; ATTEND Family Medicine
DX: E87.1 Hypo-osmolality and hyponatremia (principal); N17.0 Acute kidney failure with tubular necrosis; E86.0 Dehydration; F10.230 Alcohol dependence with withdrawal, uncomplicated; I10 Essential (primary) hypertension; D64.9 Anemia, unspecified; R74.01 Elevation of levels of liver transaminase levels; E87.6 Hypokalemia; Z59.00 Homelessness unspecified; Z79.82 Long term (current) use of aspirin; Z79.899 Other long term (current) drug therapy
CPT/HCPCS: 36415; 71045; 76705; 80048; 80053; 80320; 82962; 83036; 83735; 85025; 85610; 85730; 86704; 86706; 86708; 86803; 87340; 93005; G0378; J2470; J7060

== ENCOUNTER 2024-08-30 20:09 | Inpatient (IN) | payer MEDICAID ==
[~2024-08-30] VITALS: Ht 180.3 cm; Wt 81.0 kg
[~2024-08-30 20:09] MED LIST changes: +CHL25C PO; +FOLI-119 PO; +MULT-1018 PO; +THIA100T26 PO
[2024-08-30 21:58] LABS: Hematocrit 40.6 % (41.0-53.0); Hemoglobin 13.5 g/dL (13.5-17.5); Mean Corpuscular Hemoglobin 29.5 pg (28.0-32.0); Mean Corpuscular Hgb Conc. 33.2 g/dL (32.0-36.0); Mean Corpuscular Volume 88.9 fL (80.0-100.0); Platelet Count (auto) 339 10^3/uL (140-450); Red Blood Cells 4.57 10^6/uL (4.5-5.90); Red Cell Distribution Width 17.7 % (11.8-14.3); White Blood Cell 3.9 10^3/uL (4.4-10.8)
[2024-08-30 21:59] LABS: Band Neutrophils % (manual) 0; Basophils % (manual) 0 (0.0-2.0); Blast Cells 0; Eosinophils % (manual) 0 (0-7); Metamyelocytes % 0; Myelocytes % 0; Promyelocytes % 0; Reactive Lymphocytes 0
[2024-08-30 22:06] LABS: Chloride 103 mmol/L (98-107); Potassium 3.9 mmol/L (3.5-5.1); Sodium 139 mmol/L (136-145)
[2024-08-30 22:07] LABS: Anion Gap 11 (5-15); Carbon Dioxide 25 mmol/L (20-31)
[2024-08-30 22:08] LABS: Calcium 9.9 mg/dL (8.7-10.4)
[2024-08-30 22:10] VITALS: PULSE 84; RESP 20; O2SAT 95
[2024-08-30 22:13] LABS: BUN/Creatinine Ratio 9.9 (10.0-20.0); Blood Urea Nitrogen 12 mg/dL (9-23); Glucose 92 mg/dL (74-106)
[2024-08-30 22:17] LABS: Lymphocytes % (manual) 15 (10.0-50.0); Monocytes % (manual) 19 (0-12)
[2024-08-30 22:18] LABS: Platelet Estimate Adequate
[2024-08-30 22:22] LABS: Blood Alcohol < 3.0 mg/dL (<10)
--- NOTE | 2024-08-30 23:28 | ED.PDOC ---
History of Present Illness HPI Comments 64 y/o M, with a history of HTN and polysubstance abuse, is BIBA for c/o generalized tremors and weakness, today. Patient denies having any chest pain, shortness of breath, dizziness, fatigue, fever, chills, or other associated symptoms or modifiers at this time. Chief Complaint: General Weakness Time Seen by MD: 21:20 Reviewed Notes: Nurses Notes, Sql Architect Notes, Medications, Allergies Allergies: Coded Allergies: NO KNOWN ALLERGIES (Unverified , 08/20/24) Home Meds Active Scripts Pantoprazole Sodium Sesquihydr (Pantoprazole Sodium) 40 Mg Tab, 40 MG PO DAILY, #30 TAB Prov:EVA MARINA MD 08/24/24 Chlordiazepoxide Hcl (Librium) 25 Mg Cp, 25 MG PO TID, #30 CAP Prov:EVA MARINA MD 08/24/24 Multiple Vitamin (Multivitamins) Tab, 1 TAB PO DAILY, #30 TAB 5 Refills Prov:EVA MARINA MD 08/24/24 Folic Acid (Folic Acid) 1 Mg Tab, 1 MG PO DAILY, #30 TAB Prov:EVA MARINA MD 08/24/24 Thiamine Mononitrate (B1) 100 Mg Tab, 100 MG PO DAILY, #30 TAB Prov:EVA MARINA MD 08/24/24 Reported Medications Metoclopramide Hcl (Metoclopramide Hcl) 10 Mg Tab, 10 MG PO BID for GERD for 30 Days, MG 02/12/23 Atorvastatin Calcium (ATORVASTATIN CALCIUM) 10 Mg Tab, 1 TAB PO DAILY for DYSLIPIDEMIA, #30 TAB 5 Refills 02/12/23 Aspirin (Aspir-Low) 81 Mg Tab, 81 MG PO DAILY for CLOT PREVENTION, MG 02/12/23 Metoprolol Tartrate (Metoprolol Tartrate) 25 Mg Tab, 25 MG PO BID for HTN for 30 Days, MG 02/12/23 Magnesium Oxide (MAGNESIUM OXIDE) 400 Mg Tab, 1 TAB PO DAILY for SUPPLEMENT, #30 TAB 5 Refills 02/12/23 Sucralfate (Sucralfate) 1 Gm/10 Ml Nany, 1 GM PO QID for GERD, GM 02/12/23 Bupropion Hcl (Bupropion Hcl) 100 Mg Tab, 300 MG PO Q8HR for ANXIETY, MG 02/12/23 Trazodone Hcl (Trazodone Hcl) 50 Mg Tab, 50 MG PO DAILY for INSOMNIA, MG 02/12/23 Montelukast Sodium (MONTELUKAST SODIUM) 10 Mg Tab, 1 TAB PO DAILY for ALLERGIES, #30 TAB 5 Refills 02/12/23 Pantoprazole Sodium Sesquihydr (Pantoprazole Sodium) 40 Mg Tab, 40 MG PO BID for GERD, TAB 02/12/23 Cholecalciferol (VITAMIN D3) 2,000 Unit Tab, 1 TAB PO DAILY for SUPPLEMENT, #30 TAB 5 Refills 02/12/23 Cetirizine Hcl (Kls Aller-Celestina) 10 Mg Tab, 1 TAB PO DAILY for ALLERGIES, #30 TAB 3 Refills 02/12/23 Ferrous Sulfate (Ferrous Sulfate) 325 Mg Tab, 325 MG PO DAILY for LOW IRON, MG 02/12/23 Baclofen (Baclofen) 10 Mg Tab, 10 MG PO TID PRN for BACK PAIN, MG 02/12/23 Gabapentin (Gabapentin) 300 Mg Cap, 300 MG PO DAILY for NEUROPATHY, MG 02/12/23 Information Source: Patient, Emergency Med Personnel Mode of Arrival: EMS Severity: Moderate Timing: Hours Duration: Since onset Prehospital treatment: 12 Lead EKG, Remote Advisor Past Medical History PAST MEDICAL HISTORY: Depression, HTN Surgical History: Denies all surgeries Family History Family History: Reviewed,noncontributory to illness Social History Smoker: Cigarettes Alcohol: Heavy Drugs: Denies Drug Use Lives In: Home All Other Systems: Reviewed and Negative (Comprehensive systems review obtained and negative except for what is stated in the HPI.) Physical Exam General Appearance: No Apparent Distress, Normal HEENT: Pharynx Normal, TMs Normal, Other ( tongue fasciuclations, otherwise normal HEENT inspection ) Neck: Full Range of Motion, Non-Tender, Normal, Normal Inspection Respiratory: Chest Non-Tender, Lungs Clear, No Accessory Muscle Use, No Respiratory Distress, Normal Breath Sounds Cardiovascular: No Edema, No JVD, No Murmur, No Gallop, Normal Peripheral Pulses, Regular Rate/Rhythm Breast Exam: Deferred Gastrointestinal: No Organomegaly, Non Tender, No Pulsatile Mass, Normal Bowel Sounds, Soft Genitalia: Deferred Pelvic: Deferred Rectal: Deferred Extremities: No calf tenderness, Normal capillary refill, Normal inspection, Normal range of motion, Non-tender, No pedal edema Musculoskeletal : Apperance: Normal Neurologic: Alert, residential supervisor II-XII nml as Tested, No Motor Deficits, Normal Affect, Normal Mood, No Sensory Deficits Cerebellar Function: Normal Reflexes: Normal Skin: Dry, Normal Color, Warm Lymphatic: No Adenopathy Was a procedure done? Was a procedure done?: No EKG EKG : Pulse Rate (adult): 81 [place]: Normal Cardiac Rhythm: NSR Block: None Hypertrophy: None ST: Normal Differential Dx Considerations may include: polysubstance abuse and dependency, substance withdrawal, anxiety, electrolyte imbalance, dehydration, viral syndrome, among others X-Ray, Labs, Meds, VS Vital Signs Date Time Temp Pulse Resp B/P (MAP) Pulse Ox O2 Delivery O2 Flow Rate FiO2 08/30/24 23:38 97.7 84 20 117/78 (91) 94 97.7 08/30/24 23:28 81 08/30/24 22:10 84 20 95 Room Air* 0 21 08/30/24 22:00 98.8 84 18 114/77 (89) 95 98.8 08/30/24 20:19 97.9 81 20 126/79 (95) 95 97.9 08/30/24 20:12 81 Lab Test 08/30/24 22:20 08/30/24 21:35 Range/Units Troponin I High Sensitivity 4 4 </=54 ng/L White Blood Count 3.9 L 4.4-10.8 10^3/uL Red Blood Count 4.57 4.5-5.90 10^6/uL Hemoglobin 13.5 13.5-17.5 g/dL Hematocrit 40.6 L 41.0-53.0 % Mean Corpuscular Volume 88.9 80.0-100.0 fL Mean Corpuscular Hemoglobin 29.5 28.0-32.0 pg Mean Corpuscular Hemoglobin Concent 33.2 32.0-36.0 g/dL Red Cell Distribution Width 17.7 H 11.8-14.3 % Platelet Count 339 140-450 10^3/uL Mean Platelet Volume 7.6 6.9-10.8 fL Neutrophils (%) (Auto) 37.0-80.0 % Lymphocytes (%) (Auto) 10.0-50.0 % Monocytes (%) (Auto) 0.0-12.0 % Basophils (%) (Auto) 0.0-2.0 % Neutrophils # (Auto) 1.6-8.6 10 ^3/uL Lymphocytes # (Auto) 0.4-5.4 10 ^3/uL Monocytes # (Auto) 0-1.3 10 ^3/uL Differential Total Cells Counted 100.0 100 Neutrophils % (Manual) 66 37.0-80.0 Band Neutrophils % (Manual) 0 Lymphocytes % (Manual) 15 10.0-50.0 Monocytes % (Manual) 19 H 0-12 Eosinophils % (Manual) 0 0-7 Basophils % (Manual) 0 0.0-2.0 Metamyelocytes % (manual) 0 Myelocytes % (Manual) 0 Promyelocytes % (Manual) 0 Blast Cells % (Manual) 0 Reactive Lymphocytes 0 Platelet Estimate Adequate Sodium Level 139 136-145 mmol/L Potassium Level 3.9 3.5-5.1 mmol/L Chloride Level 103 98-107 mmol/L Carbon Dioxide Level 25 20-31 mmol/L Anion Gap 11 5-15 Blood Urea Nitrogen 12 9-23 mg/dL Creatinine 1.21 0.700-1.30 mg/dL Glomerular Filtration Rate Calc 67 >90 mL/min BUN/Creatinine Ratio 9.9 L 10.0-20.0 Serum Glucose 92 74-106 mg/dL Calcium Level 9.9 8.7-10.4 mg/dL Plasma/Serum Blood Alcohol < 3.0 <10 mg/dL Current Medications Medications (Trade) Dose Ordered Sig/Alon Route Start Time Stop Time Status Last Admin Sodium Chloride 1,000 ml @ 1,000 mls/hr Q1H ONCE IV 08/30/24 23:15 08/31/24 00:14 DC 08/31/24 00:16 Ondansetron HCl (Zofran) 4 mg ONCE ONCE IV 08/30/24 23:15 08/30/24 23:16 DC 08/31/24 00:15 Lorazepam (Ativan Inj) 1 mg ONCE ONCE IV 08/30/24 23:15 08/30/24 23:16 DC 08/31/24 00:15 Time of 1ST Reevaluation: 21:50 Reevaluation 1ST: Unchanged Patient Education/Counseling: Diagnosis, Treatment Family Education/Counseling: No Family Present Additional Information Previous visits: August 20, 2024 encounter for alcohol withdrawals The following tests were ordered, and results were reviewed by me: EKG, BMP, CBC, CXR, UA, blood alcohol, troponin, manual differential Additional Information was gathered from interviewing the following independent historians: EMS I reviewed and agreed with the following test results read by other providers: CXR I discussed treatment and results with medical personnel and: Patient Departure 1 Departure Time of Disposition: 00:23 (Patient presents with alcohol withdrawal. Patient will be admitted for acute alcohol withdrawal.) Impression: Primary Impression: Acute hyperactive alcohol withdrawal delirium Disposition: ADMITTED INPATIENT Admit to: Med Surg Condition: Serious Critical Care Note Critical Care Time?: No Stability Stability form required: No Heart Score Heart Score: Heart Score Response (Comments) Value History N/A 0 EKG N/A 0 Age N/A 0 Risk Factors N/A 0 Troponin N/A 0 Total 0 I personally scribed for BONIFACIO CHAN MD ([email or web address]) on 08/30/24 at 23:28. Electronically submitted by Swapnil Garcia ([email or web address]). BONIFACIO CHAN MD Aug 30, 2024 23:28
[2024-08-31] MEDS: ONDANSETRON HCL 4 MG/2 ML VIAL IV ONE (00:15)
[2024-08-31] MEDS: LORazepam 2MG/ML-1ML VIAL IV ONE (00:15)
[2024-08-31] MEDS: SODIUM CHLORIDE 0.9% 1,000 ML IV ONE (00:16)
[2024-08-31] MEDS: chlordiazePOXIDE HCL 25 MG CAP PO ONE (00:25)
--- NOTE | 2024-08-31 00:26 | DVH ---
CHEST RADIOGRAPH Indication: weakness Technique: Single frontal view of the chest was obtained COMPARISON: XY CHEST XRAY 1 VIEW on DOS: 08/21/24 FINDINGS: Lines and Tubes: None Lungs: Clear Pleura: No effusion. No pneumothorax. Cardiomediastinal contours: Unremarkable IMPRESSION: No acute disease.
[2024-08-31] MEDS ORDERED: ONDANSETRON HCL 4 MG/2 ML VIAL IV PRN (01:00)
--- NOTE | 2024-08-31 01:08 | DVHHP2 ---
History of Present Illness Reason for Visit: Fatigue History of Present Illness 64-year-old male presents for evaluation of fatigue. Patient presents with a history of alcohol abuse. Patient presents with a two day history of generalized weakness and fatigue. Reports having his last alcoholic drink approximately one-week ago. He states having a difficult time getting out of bed to perform ADLs. He denies unilateral weakness, headache or blurred vision. No slurred speech. Denies cardiac or respiratory symptoms. Past Medical History Depression and hypertension Past Surgical History Denies Family History Noncontributory Smoke: <1 pack per day ALCOHOL: heavy Drugs: None Review of Systems Review of Systems Review of systems are currently negative otherwise addressed in HPI. Allergies: Coded Allergies: NO KNOWN ALLERGIES (Unverified , 08/20/24) Exam Vital Signs Vital Signs Date Time Temp Pulse Resp B/P (MAP) Pulse Ox O2 Delivery O2 Flow Rate FiO2 08/30/24 23:38 97.7 84 20 117/78 (91) 94 97.7 08/30/24 22:10 Room Air* 0 21 Exam Gen: 64-year-old male in mild distress Skin: Warm, dry, normal color and texture, no rash. HEENT: Normocephalic atraumatic, mucous membranes moist and pink. Neck: Cervical and supraclavicular nodes normal without enlargement, trachea is midline, thyroid gland is normal without masses. Pulmonary: Clear to auscultation and percussion bilaterally. Cardiac: Regular rate and rhythm. No murmur Abdomen: Soft, nontender, nondistended, bowel sounds present all 4 quadrants, no guarding, no rigidity, no organomegaly. Extremities: No cyanosis, clubbing, no edema Neuro: Lethargic, no focal motor deficits. Labs/Xrays ORDERING PHYSICIAN: BONIFACIO CHAN MD PROCEDURE(s): CXRP - CHEST PORTABLE REASON: weakness ORDER NUMBER(s): [id number], ACCESSION NUMBER(s): [id number] CHEST RADIOGRAPH Indication: weakness Technique: Single frontal view of the chest was obtained COMPARISON: XY CHEST XRAY 1 VIEW on DOS: 08/21/24 FINDINGS: Lines and Tubes: None Lungs: Clear Pleura: No effusion. No pneumothorax. Cardiomediastinal contours: Unremarkable IMPRESSION: No acute disease. Labs Test 08/30/24 22:20 08/30/24 21:35 Range/Units Troponin I High Sensitivity 4 </=54 ng/L White Blood Count 3.9 L 4.4-10.8 10^3/uL Red Blood Count 4.57 4.5-5.90 10^6/uL Hemoglobin 13.5 13.5-17.5 g/dL Hematocrit 40.6 L 41.0-53.0 % Mean Corpuscular Volume 88.9 80.0-100.0 fL Mean Corpuscular Hemoglobin 29.5 28.0-32.0 pg Mean Corpuscular Hemoglobin Concent 33.2 32.0-36.0 g/dL Red Cell Distribution Width 17.7 H 11.8-14.3 % Platelet Count 339 140-450 10^3/uL Mean Platelet Volume 7.6 6.9-10.8 fL Neutrophils (%) (Auto) 37.0-80.0 % Lymphocytes (%) (Auto) 10.0-50.0 % Monocytes (%) (Auto) 0.0-12.0 % Basophils (%) (Auto) 0.0-2.0 % Neutrophils # (Auto) 1.6-8.6 10 ^3/uL Lymphocytes # (Auto) 0.4-5.4 10 ^3/uL Monocytes # (Auto) 0-1.3 10 ^3/uL Differential Total Cells Counted 100.0 100 Neutrophils % (Manual) 66 37.0-80.0 Band Neutrophils % (Manual) 0 Lymphocytes % (Manual) 15 10.0-50.0 Monocytes % (Manual) 19 H 0-12 Eosinophils % (Manual) 0 0-7 Basophils % (Manual) 0 0.0-2.0 Metamyelocytes % (manual) 0 Myelocytes % (Manual) 0 Promyelocytes % (Manual) 0 Blast Cells % (Manual) 0 Reactive Lymphocytes 0 Platelet Estimate Adequate Sodium Level 139 136-145 mmol/L Potassium Level 3.9 3.5-5.1 mmol/L Chloride Level 103 98-107 mmol/L Carbon Dioxide Level 25 20-31 mmol/L Anion Gap 11 5-15 Blood Urea Nitrogen 12 9-23 mg/dL Creatinine 1.21 0.700-1.30 mg/dL Glomerular Filtration Rate Calc 67 >90 mL/min BUN/Creatinine Ratio 9.9 L 10.0-20.0 Serum Glucose 92 74-106 mg/dL Calcium Level 9.9 8.7-10.4 mg/dL Plasma/Serum Blood Alcohol < 3.0 <10 mg/dL Assessment/Plan Assessment/Plan Assessment Generalized weakness ? Wernicke's encephalopathy Hypertension Plan Admit the patient to Med surge to the hospitalist Head CT pending Librium/thiamine/folic acid Resume home medications Continue treatment per orders. Plan discussed with: Patient My Orders Orders - ANDREW STERLING Procedure Category Date Status Time Head Without Contrast CT 08/31/24 Logged 00:54 Thiamine Tab PHA 08/31/24 Transmitted 10:00 Folic Acid Tablet PHA 08/31/24 Transmitted 10:00 Atorvastatin (Lipitor) PHA 08/31/24 Transmitted 22:00 Metoprolol Tartrate PHA 08/31/24 Transmitted Tablet (Lopressor Ta 10:00 Pantoprazole Tablet PHA 08/31/24 Transmitted (Protonix Tablet) 06:00 Chlordiazepoxide Hcl PHA 08/31/24 Transmitted Capsule (Librium Ca 01:00 Drug Screen LAB 08/31/24 Transmitted 00:54 Basic Metabolic Panel LAB 09/01/24 Verified 04:00 Admit ADMIT 08/31/24 Transmitted 00:54 Ondansetron Hcl PHA 08/31/24 Transmitted (Zofran) 01:00 Cardiac DIET 08/31/24 Transmitted Diet-2gna,Lofat,Lochol Breakfast Condition: Stable BRANDON 08/31/24 Transmitted 00:54 Acetaminophen Tablet PHA 08/31/24 Transmitted (Tylenol Tablet) 01:00 Bedrest With Bathroom BRANDON 08/31/24 Transmitted Privileg 00:54 Magnesium LAB 08/31/24 Verified 01:03 Date of Service: Aug 31, 2024 Billing Provider: ANDREW STERLING Common Visit Codes: [id number] INP/OBS CARE (HIGH) ANDREW STERLING Aug 31, 2024 01:08
--- NOTE | 2024-08-31 03:06 | DVH ---
EXAM: CT HEAD WITHOUT CONTRAST INDICATION: Generalized Weakness TECHNIQUE: CT of the head without intravenous contrast. Radiation Dose Information: CT Dose: CTDI volume is 55.86 mGy. Dose-length product is 895.49 mGy*cm The dose indicators for CT are the volume Computed Tomography (CT) Dose Index (CTDIvol) and the Dose Length Product (DLP), and are measured in units of mGy and mGy-cm, respectively. These indicators are not patient dose, but values generated from the CT scanner acquisition factors. The report includes radiation exposure data for exposures received during this examination. COMPARISON: None FINDINGS: There is no evidence of acute intracranial hemorrhage, extra-axial collection, mass effect, midline s hift, herniation or hydrocephalus. The ventricles, sulci and cisterns are age appropriate. The crowder-white differentiation is intact. Patchy periventricular and subcortical white matter hypoattenuation is nonspecific but may be related to small vessel ischemic disease. The visualized paranasal sinuses and mastoid air cells are clear. The surrounding soft tissues and osseous structures are unremarkable. IMPRESSION: 1. No acute intracranial abnormality.
--- NOTE | 2024-08-31 05:03 | ECG ---
[facility] Test Date: 2024-08-30 Test Time: 20:12:41 Pat Name: RANJITH OLSON Department: ED Room: 0295 Gender: M Patient Portal Representative: JENNA : 1960 Requested By: BONIFACIO CHAN Order Number: [id number] Reading MD: Omega Martines Measurements Intervals [place] Rate: 81 P: 48 LA: 200 QRS: 20 QRSD: 91 T: 34 QT: 361 QTc: 419 Interpretive Statements Sinus rhythm Abnormal R-wave progression, early transition Electronically Signed On 09-01-2024 17:09:06 PDT by Omega Martines Please click the below link to view image of tracing.
[2024-08-31] MEDS: PANTOPRAZOLE 40 MG TAB PO SCH (05:56)
[2024-08-31 09:07] LABS: Hematocrit 37.3 % (41.0-53.0); Hemoglobin 12.3 g/dL (13.5-17.5); Mean Corpuscular Hemoglobin 29.2 pg (28.0-32.0); Mean Corpuscular Hgb Conc. 32.9 g/dL (32.0-36.0); Mean Corpuscular Volume 88.8 fL (80.0-100.0); Platelet Count (auto) 309 10^3/uL (140-450); Red Cell Distribution Width 17.6 % (11.8-14.3); White Blood Cell 3.4 10^3/uL (4.4-10.8)
[2024-08-31 09:09] LABS: Basophils % (manual) 0 (0.0-2.0); Blast Cells 0; Eosinophils % (manual) 0 (0-7); Metamyelocytes % 0; Myelocytes % 0; Promyelocytes % 0; Reactive Lymphocytes 0
[2024-08-31 09:16] LABS: Chloride 104 mmol/L (98-107); Potassium 3.7 mmol/L (3.5-5.1); Sodium 137 mmol/L (136-145)
[2024-08-31 09:17] LABS: Anion Gap 11 (5-15); Carbon Dioxide 22 mmol/L (20-31)
[2024-08-31 09:18] LABS: Calcium 9.3 mg/dL (8.7-10.4)
[2024-08-31 09:23] LABS: BUN/Creatinine Ratio 9.5 (10.0-20.0); Blood Urea Nitrogen 10 mg/dL (9-23); Glucose 108 mg/dL (74-106)
[2024-08-31 09:41] LABS: Band Neutrophils % (manual) 1; Lymphocytes % (manual) 19 (10.0-50.0); Monocytes % (manual) 14 (0-12); Platelet Estimate Adequate
[2024-08-31 10:19] LABS: Folate (Folic Acid) 21.62 ng/mL (>5.38)
[2024-08-31] MEDS: THIAMINE HCL 100 MG TAB PO SCH (10:39)
[2024-08-31] MEDS: FOLIC ACID 1 MG TAB PO SCH (10:39)
[2024-08-31] MEDS: METOPROLOL TARTRATE 25 MG TAB PO SCH ×2 (10:42→22:00)
[2024-08-31 11:25] LABS: Urine Bacteria None Seen /hpf (None Seen)
[2024-08-31 11:33] LABS: Urine Blood Negative /uL (Negative); Urine Clarity Clear (Clear); Urine Color Yellow (Yellow); Urine Mucus FEW (None Seen); Urine Protein, UAD Negative (Negative); Urine Specific Gravity 1.015 (1.001-1.035); Urine Squamous Epithelial Cell FEW /hpf (<5); Urine Urobilinogen Normal (Negative); Urine WBC < 1 /HPF (0-3)
[2024-08-31 11:44] LABS: Amphetamine Screen, Urine Neg (NEGATIVE); Barbiturate Scree,Urine Neg (NEGATIVE); Benzodiazephine Screen, Urine Pos (NEGATIVE); Cannabinoid Screen, Urine Neg (NEGATIVE); Cocaine Screen, Urine Neg (NEGATIVE); Opiate Scree,Urine Neg (NEGATIVE); Phencyclidine Screen, Urine Neg (NEGATIVE)
--- NOTE | 2024-08-31 12:34 | DVH ---
Carotid Duplex Date: 08/31/2024 11:26 AM Clinical History: R/O SIGNIFICANT STENOSIS Comparison: None Technique: Duplex Doppler evaluation of the extracranial carotid and vertebral arteries including col or Doppler and spectral/pulsed waveform analysis was performed. Findings: Velocities and ratios within normal limits IMPRESSION: No hemodynamically significant stenosis noted in the right carotid system. No hemodynamically significant stenosis noted in the left carotid system. Reference: Radiology 2003; 229:340-346
--- NOTE | 2024-08-31 13:05 | DVH ---
MRI BRAIN HEAD WO CONTRAST INDICATION: R/O ISCHEMIC/HEMORRHAGIC STROKE : 64 old Male R/O ISCHEMIC/HEMORRHAGIC STROKE EXAM DATE: 08/31/2024 12:14 PM COMPARISON: None PROCEDURE: Using a 1.5 Sarika scanner, multisequence multiplanar imaging of the brain was obtained. FINDINGS: Possible 1.4 x 1.5 cm mass lesion along the floor of the right frontal lobe. The brain othe rwise shows normal morphology and signal characteristics. No abnormal T2 hyperintensity, diffusion re striction, or susceptibility hypointensity is present. The ventricles are normal in size. The midline structures are intact. The major intracranial flow voids are present. The aerated spaces are normal. The orbital contents and extracranial soft tissues appear normal. IMPRESSION: Possible 1.4 x 1.5 cm mass lesion along the floor of the right frontal lobe. Recommend MRI brain with contrast for further evaluation. Meningioma is a consideration. No acute MRI abnormality of the brain.
--- NOTE | 2024-08-31 14:00 | DVHPNRES ---
Progress Note Date Seen: Aug 31, 2024 Resident Creating Document: STEPH CAMILO RESIDENT Has the PT tested + for MRSA If YES, has PT been informed?: No Medical Necessity Reason Pt with a Central, PICC or Fol: No Subjective Review of Systems This is a 64-year-old male with past medical history of hypertension, depression, alcohol abuse, who presented to the ED with chief complaint of generalized weakness and fatigue. The patient reports that in the past two days he has been feeling generalized weakness and fatigue that has been unable to stand up from the bed. Patient's speech is very slow and patient is a poor historian. Per ED nurse, patient had also a fall at home and came with bruises in the left upper chest and hands. Patient states very difficult time getting out of the bed to perform activities of daily living. He denies any unilateral weakness, headache, blurry vision, chest pain, shortness of breath or any other symptoms. Upon my examination, patient is having very slow speech but is coherent. Initial chest x-ray was grossly unremarkable and CT scan of the head was unremarkable as well. Patient was admitted for further assessment and management. Patient seen and examined at bedside. Patient is alert and oriented in person, place and time. Patient is having very slow speech but is coherent but does takes a lot of time to think and provide history. Patient complains of generalized weakness and fatigue but denies chest pain, shortness of breath, headache, dizziness or any other symptoms. We ordered an MRI of the brain which is showing a possible 1.4 X1.5 cm mass lesion along the floor of the right frontal lobe. We will perform an MRI of the brain with contrast to have a better view of the mass. Carotid Doppler ultrasound showed no hemodynamic stenosis in neither left or right carotid systems. We consulted Neurology to get involved in the case to assess the patient. ROS: Constitutional: Reports generalized weakness and fatigue. Denies weight loss, fever and chills. HEENT: Denies changes in vision and hearing. Respiratory: Denies shortness of breath and cough Cardiovascular: Denies chest discomfort or palpitations GI: Denies abdominal pain, nausea, vomiting and diarrhea. : Denies dysuria and urinary frequency. Musculoskeletal: Denies myalgias and joint pain Skin: Denies rash and pruritus. Neurological: Denies dizziness, headache, vision or hearing problems Objective vital signs Vital Sign Date Time Temp Pulse Resp B/P (MAP) Pulse Ox O2 Delivery O2 Flow Rate FiO2 08/31/24 10:42 97 98/64 08/31/24 10:30 97.9 21 94 97.9 08/31/24 07:30 Room Air* 0 21 medications Current Medications Medications Dose Ordered Sig/Alon Route Start Time Stop Time Status Last Admin Dose Admin Thiamine HCl 100 mg DAILY PO 08/31/24 10:00 08/31/24 10:39 100 MG Folic Acid 1 mg DAILY PO 08/31/24 10:00 08/31/24 10:39 1 MG Atorvastatin Calcium 10 mg HS PO 08/31/24 22:00 Metoprolol Tartrate 25 mg BID PO 08/31/24 10:00 08/31/24 10:42 25 MG Pantoprazole Sodium 40 mg DAILY@0600 PO 08/31/24 06:00 08/31/24 05:56 40 MG Chlordiazepoxide HCl 25 mg Q6HPRN PRN PO 08/31/24 01:00 Ondansetron HCl 4 mg Q4HP PRN IV 08/31/24 01:00 Acetaminophen 650 mg Q6HP PRN PO 08/31/24 01:00 Examination Physical Examination General: Patient alert and oriented in person, place and time. Patient's speech is very slow and takes a lot of time to think and talk. Patient following commands. HEENT: Normocephalic, atraumatic, moist mucous membranes Respiratory/pulmonary: Clear lungs bilaterally, no associated crackles or wheezes. Cardiovascular: Normal heart sounds S1 and S2 with no associated murmurs Abdomen: Abdomen nondistended, there is no pain to palpation in any of the abdominal quadrants, no palpable masses. Extremities: There is no peripheral edema present at the lower extremities. Peripheral Pulses: 3+ Radial (R). 3+ Radial (L). 3+ Dorsalis pedis (R). 3+ Dorsalis pedis(L) Skin: No rashes or pruritus, there is no sacral edema present at this time. Neurological: Intact cranial nerves with no focal neurologic deficits laboratory and microbiology Laboratory Tests 08/31/24 08:59 Test 08/31/24 08:59 Range/Units Serum Glucose 108 H 74-106 mg/dL Labs and/or images reviewed: Labs reviewed by me, Image(s) reviewed by me Problem List/Assessment/Plan Problem List/Assessment/Plan Assessment/Plan Generalized weakness likely due to intracranial mass Possible right frontal lobe mass Ruled out ACS -EKG showed sinus rhythm with no significant ST segment elevation or depression or T-wave abnormalities -troponins came back negative -patient denied any chest pain. -initial chest x-ray was grossly unremarkable, showing no evidence of clear consolidations. -initial CT scan of the head showed no evidence of acute ischemic/hemorrhagic stroke -MRI of the brain is showing possible 1.4 X1.5 cm mass lesion along the floor of the right frontal lobe. -ordered MRI of the brain with contrast to have a better view of the mass -consulted Neurology for further assessment -currently on room air saturating 95%. -carotid ultrasound was performed showing no evidence of significant stenosis in neither left or right carotid systems. LAVERN likely due to vasomotor nephropathy -initial creatinine was 1.21 and BUN 12 -avoid nephrotoxic drugs -IV fluids at 75cc/hr -continue monitoring kidney function. Primary hypertension -restart metoprolol tartrate 25 mg b.i.d. -monitor blood pressure closely GERD -start pantoprazole 40 mg daily Chronic alcohol abuse Tobacco use disorder -alcohol levels were normal range -thiamine 100 mg daily, folic acid multivitamins -counseled on cessation for 22 minutes Goals of care discussed with the patient at bedside for 20 minutes, FULL CODE Plan discussed with Dr. Begum Plan discussed with: Patient, Other (Nurse) My Orders My Orders Orders - STEPH CAMILO RESIDENT Procedure Category Date Status Time Carotid Duplx W Color US 08/31/24 Resulted DOP 09:37 Brain Head Wo Contrast MRI 08/31/24 Resulted 09:37 Brain Head Wo W MRI 08/31/24 Logged Contrast 13:31 * Neurology Consult CONS 08/31/24 Transmitted 13:35 Addendum Addendum Addendum I was physically present for the manuel portions of the service provided to patient by THE RESIDENT. I have reviewed the documentation, discussed the case with resident and agree with the resident's documentation except as noted. Also the patient's clinical case was discussed with the patient's nurse. This medical document was created using an electronic medical record system with computerized dictation system. Although this document has been carefully reviewed, there might still be some phonetic and typographical errors. These areas are purely typographical due to imperfections of the software programs, and do not reflect any compromise in the patient's medical care. Late signature. Date of Service: Aug 31, 2024 Billing Provider: CARLOS BEGUM MD Common Visit Codes: 63010-[id number] INP/OBS CARE(HIGH) Secondary Visit Codes: 32006-GOFKW CHNG SMOKING >10MIN (Counseled on tobacco and alcohol use cessation for 22 minutes; specifically 16 minutes for tobacco use cessation), 41078-[id number] CARE PLAN 30 MINUTES (20 minutes) STEPH CAMILO RESIDENT Aug 31, 2024 14:00 CARLOS BEGUM MD Sep 01, 2024 09:27
[2024-08-31] MEDS: SODIUM CHLORIDE 0.9% 1,000 ML IV SCH (14:43)
[2024-08-31] MEDS: GADOTERATE MEG 10 MMOL/20ml INJ (0.5MMOL/ml) IV ONE (15:25)
--- NOTE | 2024-08-31 16:17 | DVH ---
MRI BRAIN WITH CONTRAST CLINICAL HISTORY: possible frontal lobe mass on normal MRI brain TECHNIQUE: Multi planar, multi sequence postcontrast MR images of the brain. 10 cc of gadavist contrast from a p refilled syringe was administered intravenously. Comparison: MRI BRAIN HEAD WO CONTRAST on DOS: 08/31/24 FINDINGS: There is a 1.6 cm avidly enhancing extra-axial nodule along the supraorbital floor of the right anter ior cranial fossa consistent with the meningioma. There is a small dural tail. There is adjacent ana ical buckling. There are no parenchymal signal changes to suggest edema. IMPRESSION: 1. 1.6 cm avidly enhancing meningioma along the supraorbital floor of the right anterior cranial derik a. HS:Y
--- NOTE | 2024-08-31 20:29 | DVHINCON2 ---
Date of service: Aug 31, [address] Pearl Parker Reason for Consultation Mass on frontal lobe, general weakness and fatigue History of Present Illness Mr. Lemus is a 64 years old right-handed gentleman with a history of hypertension, GERD, depression, PVC, alcohol abuse, he came to the [facility] on 08/30/2024 with a chief complaint of general weakness and tremors. Neuro consultation was requested because of a small mass lesion in the frontal reason, which is likely benign meningioma based on the imaging study, the patient was also tell me he has other problems. At this time, he is awake, but is oriented x4, he speaks slowly, looks tired, with time spent, he provided the following history He said he has been having general weakness for about one month, and he was discharged from the [facility] recently for alcohol toxicity because he had one day's heavy alcohol drinking. Per our record, he was admitted on 08/20/2024 and discharged on 08/24/2024 for abdominal pain, nausea, vomiting, and alcohol withdrawal syndrome. The patient was related he was doing fine on discharge, he walked around every day but soon after, he had progress general weakness, and he became so weak that he was not able to walk but to crawl. He has depression, he remembers taking Wellbutrin maybe 300 mg daily All his life, he has chronic low back pain, the pain is better, mostly 6-7/10, previously the pain shoots to the back of the left thigh Urinalysis, 08/31/2024: Unremarkable UDS, 08/31/2024: Benzo Plasma alcohol, 08/30/2024: Three WBC/HB/PLT/MCV, 08/31/2024: 3.4/12.3/309/88.8 BMP 08/31/2024: Unremarkable Vitamin B12, 08/31/2024: 3436 Folic acid, 08/31/2024: 21.62 Carotid Doppler, 08/31/2024: No hemodynamically significant stenosis noted in the right carotid system. No hemodynamically significant stenosis noted in the left carotid system. CT head, 08/31/2024: No acute intracranial abnormality. MR head, : Possible 1.4 x 1.5 cm mass lesion along the floor of the right frontal lobe. Recommend MRI brain with contrast for further evaluation. Meningioma is a consideration. No acute MRI abnormality of the brain MRI head w, 08/31/2024: 1.6 cm avidly enhancing meningioma along the supraorbital floor of the right anterior cranial fossa. Past Medical History Hypertension, depression, GERD Past Surgical History Esophageal procedure, likely stretch. Abdominal trauma repair Family History: Patient reports no known family medical history. Family History No major medical history Social History He was not a tobacco smoker, he drinks 3-4 beers daily every single day, he denies a history of drug abuse (ER note: History of polysubstance abuse) Allergies: Coded Allergies: NO KNOWN ALLERGIES (Unverified , 08/20/24) Home Meds Active Scripts Pantoprazole Sodium Sesquihydr (Pantoprazole Sodium) 40 Mg Tab, 40 MG PO DAILY, #30 TAB Prov:EVA MARINA MD 08/24/24 Chlordiazepoxide Hcl (Librium) 25 Mg Cp, 25 MG PO TID, #30 CAP Prov:EVA MARINA MD 08/24/24 Multiple Vitamin (Multivitamins) Tab, 1 TAB PO DAILY, #30 TAB 5 Refills Prov:EVA MARINA MD 08/24/24 Folic Acid (Folic Acid) 1 Mg Tab, 1 MG PO DAILY, #30 TAB Prov:EVA MARINA MD 08/24/24 Thiamine Mononitrate (B1) 100 Mg Tab, 100 MG PO DAILY, #30 TAB Prov:EVA MARINA MD 08/24/24 Reported Medications Metoclopramide Hcl (Metoclopramide Hcl) 10 Mg Tab, 10 MG PO BID for GERD for 30 Days, MG 02/12/23 Atorvastatin Calcium (ATORVASTATIN CALCIUM) 10 Mg Tab, 1 TAB PO DAILY for DYSLIPIDEMIA, #30 TAB 5 Refills 02/12/23 Aspirin (Aspir-Low) 81 Mg Tab, 81 MG PO DAILY for CLOT PREVENTION, MG 02/12/23 Metoprolol Tartrate (Metoprolol Tartrate) 25 Mg Tab, 25 MG PO BID for HTN for 30 Days, MG 02/12/23 Magnesium Oxide (MAGNESIUM OXIDE) 400 Mg Tab, 1 TAB PO DAILY for SUPPLEMENT, #30 TAB 5 Refills 02/12/23 Sucralfate (Sucralfate) 1 Gm/10 Ml Nany, 1 GM PO QID for GERD, GM 02/12/23 Bupropion Hcl (Bupropion Hcl) 100 Mg Tab, 300 MG PO Q8HR for ANXIETY, MG 02/12/23 Trazodone Hcl (Trazodone Hcl) 50 Mg Tab, 50 MG PO DAILY for INSOMNIA, MG 02/12/23 Montelukast Sodium (MONTELUKAST SODIUM) 10 Mg Tab, 1 TAB PO DAILY for ALLERGIES, #30 TAB 5 Refills 02/12/23 Pantoprazole Sodium Sesquihydr (Pantoprazole Sodium) 40 Mg Tab, 40 MG PO BID for GERD, TAB 02/12/23 Cholecalciferol (VITAMIN D3) 2,000 Unit Tab, 1 TAB PO DAILY for SUPPLEMENT, #30 TAB 5 Refills 02/12/23 Cetirizine Hcl (Kls Aller-Celestina) 10 Mg Tab, 1 TAB PO DAILY for ALLERGIES, #30 TAB 3 Refills 02/12/23 Ferrous Sulfate (Ferrous Sulfate) 325 Mg Tab, 325 MG PO DAILY for LOW IRON, MG 02/12/23 Baclofen (Baclofen) 10 Mg Tab, 10 MG PO TID PRN for BACK PAIN, MG 02/12/23 Gabapentin (Gabapentin) 300 Mg Cap, 300 MG PO DAILY for NEUROPATHY, MG 02/12/23 Current Medications Current Medications Medications (Trade) Dose Ordered Sig/Alon Route PRN Reason Start Time Stop Time Status Last Admin Thiamine HCl 100 mg DAILY PO 08/31/24 10:00 08/31/24 10:39 Folic Acid 1 mg DAILY PO 08/31/24 10:00 08/31/24 10:39 Atorvastatin Calcium (Lipitor) 10 mg HS PO 08/31/24 22:00 Metoprolol Tartrate (Lopressor Tablet) 25 mg BID PO 08/31/24 10:00 08/31/24 14:25 DC 08/31/24 10:42 Pantoprazole Sodium (Protonix Tablet) 40 mg DAILY@0600 PO 08/31/24 06:00 08/31/24 05:56 Chlordiazepoxide HCl (Librium Capsule) 25 mg Q6HPRN PRN PO ALCOHOL WITHDRAWAL SYMPTOMS 08/31/24 01:00 Ondansetron HCl (Zofran) 4 mg Q4HP PRN IV NAUSEA / VOMITING 08/31/24 01:00 Acetaminophen (Tylenol Tablet) 650 mg Q6HP PRN PO PAIN SCALE 1-3 OR TEMP>100.4 08/31/24 01:00 Sodium Chloride 1,000 ml @ 75 mls/hr [id number] IV 08/31/24 14:00 08/31/24 14:43 Metoprolol Tartrate (Lopressor Tablet) 25 mg BID PO 08/31/24 22:00 Review of Systems As above, the other systems are negative Vital Signs Vital Signs Date Time Temp Pulse Resp B/P (MAP) Pulse Ox O2 Delivery O2 Flow Rate FiO2 08/31/24 18:30 95 18 98/52 (67) 96 08/31/24 10:30 97.9 97.9 08/31/24 07:30 Room Air* 0 21 Physical Exam GENERAL EXAM: General: the patient is well developed and nourished. No acute distress. HEENT: Normocephalic, neck is supple, no carotid bruits. No mass. RESPIRATORY: Normal respiratory effort with symmetrical lung expansion. Lungs clear to auscultation. CARDIOVASCULAR: Regular rate and rhythm with no murmurs. S1, S2. ABDOMEN: Soft, nontender, normal bowel sound MUSCULOSKELETAL EXAM: Tenderness to palpation in the lumbar spine NEUROLOGICAL: MENTAL STATUS: Awake and alert. Oriented to person, place, time and general circumstances. He was not good historian, he was mentally slow SPEECH, LANGUAGE, HIGHER CORTICAL FUNCTION: no aphasia or dysathria. CRANIAL NERVES: #2: Intact visual cruz to confrontation. The optic discs were sharp. #3,4,6: Pupils are equal, round and reactive. EOMs full and conjugate. No nystagmus. #5: Facial sensation intact in all three divisions bilaterally. Mandibular strength intact. #7: Facial muscles symmetrical and strength intact. #8: Hearing grossly normal to voice. #9,10: Uvula and soft palate rise in the midline. Swallow and voice are normal. #11: Trapezius and sternomastoid strength intact bilaterally. #12: Tongue midline. No fasciculations or atrophy. SENSATION: Sensation to touch and pinprick is normal. MOTOR: Normal tone in the upper and lower extremity. Normal muscle bulk. No fasciculations. No abnormal movements or posturing. Muscle strength of the major groups in the upper extremities is 5/5. Muscle strength of the major groups in the lower extremities is 5/5. REFLEXES: Deep tendon reflexes are symmetrical. No pathological reflexes. CEREBELLAR/COORDINATION: Finger to nose is normal bilaterally. GAIT/STATION: deferred. Labs/Diagnostic Data Labs Test 08/31/24 11:25 08/31/24 10:00 08/31/24 08:59 08/31/24 02:42 Range/Units Urine Color Yellow Yellow Urine Clarity Clear Clear Urine pH 5.0 5.0-9.0 Urine Specific [place] 1.015 1.001-1.035 Urine Protein Negative Negative Urine Ketones Negative Negative Urine Blood Negative Negative /uL Urine Nitrite Negative Negative Urine Bilirubin Negative Negative Urine Urobilinogen Normal Negative mg/dL Urine Leukocyte Esterase Negative Negative /uL Urine RBC 1 0 - 3 /hpf Urine Microscopic WBC < 1 0-3 /HPF Urine Squamous Epithelial Cells Few <5 /hpf Urine Bacteria None seen None Seen /hpf Urine Mucus Few None Seen Urine Glucose Normal Normal mg/dL Urine Opiates Screen Neg NEGATIVE Urine Fentanyl Screen Neg NEGATIVE Urine Barbiturates Screen Neg NEGATIVE Urine Phencyclidine Screen Neg NEGATIVE Urine Amphetamines Screen Neg NEGATIVE Urine Benzodiazepines Screen Pos NEGATIVE Urine Cocaine Screen Neg NEGATIVE Urine Cannabinoids Screen Neg NEGATIVE Ammonia < 10 L 11-32 umol/L White Blood Count 3.4 L 4.4-10.8 10^3/uL Red Blood Count 4.20 L 4.5-5.90 10^6/uL Hemoglobin 12.3 L 13.5-17.5 g/dL Hematocrit 37.3 L 41.0-53.0 % Mean Corpuscular Volume 88.8 80.0-100.0 fL Mean Corpuscular Hemoglobin 29.2 28.0-32.0 pg Mean Corpuscular Hemoglobin Concent 32.9 32.0-36.0 g/dL Red Cell Distribution Width 17.6 H 11.8-14.3 % Platelet Count 309 140-450 10^3/uL Mean Platelet Volume 7.4 6.9-10.8 fL Neutrophils (%) (Auto) 37.0-80.0 % Lymphocytes (%) (Auto) 10.0-50.0 % Monocytes (%) (Auto) 0.0-12.0 % Basophils (%) (Auto) 0.0-2.0 % Neutrophils # (Auto) 1.6-8.6 10 ^3/uL Lymphocytes # (Auto) 0.4-5.4 10 ^3/uL Monocytes # (Auto) 0-1.3 10 ^3/uL Differential Total Cells Counted 100.0 100 Neutrophils % (Manual) 66 37.0-80.0 Band Neutrophils % (Manual) 1 Lymphocytes % (Manual) 19 10.0-50.0 Monocytes % (Manual) 14 H 0-12 Eosinophils % (Manual) 0 0-7 Basophils % (Manual) 0 0.0-2.0 Metamyelocytes % (manual) 0 Myelocytes % (Manual) 0 Promyelocytes % (Manual) 0 Blast Cells % (Manual) 0 Reactive Lymphocytes 0 Platelet Estimate Adequate Sodium Level 137 136-145 mmol/L Potassium Level 3.7 3.5-5.1 mmol/L Chloride Level 104 98-107 mmol/L Carbon Dioxide Level 22 20-31 mmol/L Anion Gap 11 5-15 Blood Urea Nitrogen 10 9-23 mg/dL Creatinine 1.05 0.700-1.30 mg/dL Glomerular Filtration Rate Calc 79 >90 mL/min BUN/Creatinine Ratio 9.5 L 10.0-20.0 Serum Glucose 108 H 74-106 mg/dL Calcium Level 9.3 8.7-10.4 mg/dL Vitamin B12 Level 3426 H 211-911 pg/mL Vitamin D 25-Hydroxy 35.1 30.0-100 ng/mL Folic Acid 21.62 >5.38 ng/mL POC Glucose 83 70-106 mg/dl Test 08/30/24 22:20 08/30/24 21:35 Range/Units Magnesium Level 2.0 1.6-2.6 mg/dL Troponin I High Sensitivity 4 </=54 ng/L Plasma/Serum Blood Alcohol < 3.0 <10 mg/dL Assessment Benign meningioma General weakness, gait disturbance Alcoholism Plan/Recommendation Monitoring Supportive treatment Telemetry EEG Thiamine supplementation Folic acid supplementation Wellbutrin 300 mg daily Up to chair Physical therapy Quit alcohol completely Progress: Poor This medical document was created using an electronic medical record system with [employer] dictation system. Although this document has been carefully reviewed, there may still be some phonetic and typographical errors. These areas are purely typographical due to imperfections of the software programs, and do not reflect any compromise in the patient's medical care. Plan discussed with: Patient, Other ANNITA BOSS MD Aug 31, 2024 20:28
[2024-08-31 20:41] VITALS: PULSE 90; RESP 18; O2SAT 97
[2024-08-31] MEDS: ATORVASTATIN 20 MG TAB PO SCH (22:09)
[2024-08-31] MEDS: THIAMINE 100mg/ml INJ (200mg/2ml VIAL) IM ONE (22:27)
[2024-08-31] MEDS: IPRATROPIUM BROM 0.5 MG/2.5ML INH SOL NEB ONE (22:37)
[2024-08-31] MEDS: ALBUTEROL SULF 2.5 MG/0.5ML(0.5%) NEB SOLN NEB ONE (22:37)
[2024-08-31 23:03] VITALS: BP 120/73; PULSE 86; RESP 20; TEMP 97.6; O2SAT 95
[2024-08-31 23:25] VITALS: PULSE 86; RESP 20
[2024-08-31 23:29] VITALS: BP 120/73; PULSE 86; RESP 18; TEMP 97.6; O2SAT 94
[2024-08-31] MEDS: chlordiazePOXIDE HCL 25 MG CAP PO PRN (23:56)
[2024-08-31] MEDS: ACETAMINOPHEN 325 MG TAB PO PRN (23:56)
[2024-09-01] VITALS (8 sets, daily range): BP systolic 98–147; BP diastolic 57–86; PULSE 76–94; RESP 16–21; TEMP 97.5–98.2; O2SAT 92–98
[2024-09-01 07:22] LABS: Sodium 140 mmol/L (136-145)
[2024-09-01 07:23] LABS: Anion Gap 7 (5-15); Carbon Dioxide 23 mmol/L (20-31)
[2024-09-01 07:24] LABS: Calcium 9.2 mg/dL (8.7-10.4)
[2024-09-01 07:28] LABS: BUN/Creatinine Ratio 8.8 (10.0-20.0); Blood Urea Nitrogen 10 mg/dL (9-23)
[2024-09-01 07:29] LABS: Basophils # (auto) 0 10 ^3/uL (0-0.2); Basophils % (auto) 1.1 % (0.0-2.0); Eosinophils # (auto) 0 10 ^3/uL (0-0.8); Eosinophils % (auto) 0.7 % (0.0-7.0); Hemoglobin 11.8 g/dL (13.5-17.5); Lymphocytes # (auto) 0.7 10 ^3/uL (0.4-5.4); Lymphocytes % (auto) 25.3 % (10.0-50.0); Mean Corpuscular Hgb Conc. 32.8 g/dL (32.0-36.0); Mean Corpuscular Volume 88.6 fL (80.0-100.0); Monocytes # (auto) 0.4 10 ^3/uL (0-1.3); Monocytes % (auto) 14.6 % (0.0-12.0); Neutrophils # (auto) 1.6 10 ^3/uL (1.6-8.6); Neutrophils % (auto) 58.3 % (37.0-80.0); Nucleated Red Blood Cells % 0.1 %; Platelet Count (auto) 304 10^3/uL (140-450); Red Blood Cells 4.07 10^6/uL (4.5-5.90); Red Cell Distribution Width 17.4 % (11.8-14.3); White Blood Cell 2.8 10^3/uL (4.4-10.8)
[2024-09-01 07:34] LABS: Chloride 110 mmol/L (98-107); Glucose 131 mg/dL (74-106); Potassium 3.5 mmol/L (3.5-5.1)
--- NOTE | 2024-09-01 08:10 | DVHPNRES ---
Progress Note Date Seen: Sep 01, 2024 Resident Creating Document: STEPH CAMILO RESIDENT Has the PT tested + for MRSA If YES, has PT been informed?: No Medical Necessity Reason Pt with a Central, PICC or Fol: No Subjective Review of Systems This is a 64-year-old male with past medical history of hypertension, depression, alcohol abuse, who presented to the ED with chief complaint of generalized weakness and fatigue. The patient reports that in the past two days he has been feeling generalized weakness and fatigue that has been unable to stand up from the bed. Patient's speech is very slow and patient is a poor historian. Per ED nurse, patient had also a fall at home and came with bruises in the left upper chest and hands. Patient states very difficult time getting out of the bed to perform activities of daily living. He denies any unilateral weakness, headache, blurry vision, chest pain, shortness of breath or any other symptoms. Upon my examination, patient is having very slow speech but is coherent. Initial chest x-ray was grossly unremarkable and CT scan of the head was unremarkable as well. Patient was admitted for further assessment and management. Patient seen and examined at bedside. Patient is alert and oriented in person, place and time but looks slow on thinking and speech. Patient still reports generalized weakness and inability to walk by himself. Neurology was consulted, we ordered MRI of the brain with contrast with the showing a well defined small meningioma in the frontal lobe. Meanwhile we will continue the patient on thiamine 100 mg daily a.m., metoprolol tartrate 25 mg b.i.d., atorvastatin, NS 75 cc/hour and folic acid supplementation. We will get Physical therapy involved as well. ROS; Constitutional: Reports generalized weakness and fatigue. Denies weight loss, fever and chills. HEENT: Denies changes in vision and hearing. Respiratory: Denies shortness of breath and cough Cardiovascular: Denies chest discomfort or palpitations GI: Denies abdominal pain, nausea, vomiting and diarrhea. : Denies dysuria and urinary frequency. Musculoskeletal: Denies myalgias and joint pain Skin: Denies rash and pruritus. Neurological: Denies dizziness, headache, vision or hearing problems Objective vital signs Vital Sign Date Time Temp Pulse Resp B/P (MAP) Pulse Ox O2 Delivery O2 Flow Rate FiO2 09/01/24 05:00 97.8 80 20 98/57 (71) 92 97.8 08/31/24 23:25 Room Air* 0 21 Total Intake and Output 08/31/24 08/31/24 09/01/24 15:00 23:00 07:00 Intake Total 1230 ml Balance 1230 ml medications Current Medications Medications Dose Ordered Sig/Alon Route Start Time Stop Time Status Last Admin Dose Admin Folic Acid 1 mg DAILY PO 08/31/24 10:00 08/31/24 10:39 1 MG Atorvastatin Calcium 10 mg HS PO 08/31/24 22:00 08/31/24 22:09 10 MG Pantoprazole Sodium 40 mg DAILY@0600 PO 08/31/24 06:00 09/01/24 05:43 40 MG Chlordiazepoxide HCl 25 mg Q6HPRN PRN PO 08/31/24 01:00 08/31/24 23:56 25 MG Ondansetron HCl 4 mg Q4HP PRN IV 08/31/24 01:00 Acetaminophen 650 mg Q6HP PRN PO 08/31/24 01:00 08/31/24 23:56 650 MG Sodium Chloride 1,000 ml @ 75 mls/hr [id number] IV 08/31/24 14:00 09/01/24 05:50 75 MLS/HR Metoprolol Tartrate 25 mg BID PO 08/31/24 22:00 Thiamine HCl 100 mg DAILY IM 09/01/24 10:00 Examination Physical Examination General: Patient alert and oriented in person, place and time. patient speech is very slow and takes a lot of time to think and talk. Patient following commands. HEENT: Normocephalic, atraumatic, moist mucous membranes Respiratory/pulmonary: Clear lungs bilaterally, no associated crackles or wheezes. Cardiovascular: Normal heart sounds S1 and S2 with no associated murmurs Abdomen: Abdomen nondistended, there is no pain to palpation in any of the abdominal quadrants, no palpable masses. Extremities: There is no peripheral edema present at the lower extremities. Peripheral Pulses: 3+ Radial (R). 3+ Radial (L). 3+ Dorsalis pedis (R). 3+ Dorsalis pedis(L) Skin: No rashes or pruritus, there is no sacral edema present at this time. Neurological: Intact cranial nerves with no focal neurologic deficits laboratory and microbiology Laboratory Tests 09/01/24 06:41 Test 09/01/24 06:41 Range/Units Serum Glucose 131 H 74-106 mg/dL Labs and/or images reviewed: Labs reviewed by me, Image(s) reviewed by me Problem List/Assessment/Plan Problem List/Assessment/Plan Assessment/Plan Generalized weakness likely due to intracranial mass Possible right frontal lobe mass Ruled out ACS -EKG showed sinus rhythm with no significant ST segment elevation or depression or T-wave abnormalities -troponins came back negative -patient denied any chest pain. -initial chest x-ray was grossly unremarkable, showing no evidence of clear consolidations. -initial CT scan of the head showed no evidence of acute ischemic/hemorrhagic stroke -MRI of the brain is showing possible 1.4 X1.5 cm mass lesion along the floor of the right frontal lobe. -ordered MRI of the brain with contrast which showed a 1.6 cm avidly enhancing meningioma along the supraorbital floor of the right anterior cranial fossa. -consulted Neurology for further assessment -currently on room air saturating 95%. -carotid ultrasound was performed showing no evidence of significant stenosis in neither left or right carotid systems. LAVERN likely due to vasomotor nephropathy -initial creatinine was 1.21 and BUN 12 -avoid nephrotoxic drugs -IV fluids at 75cc/hr -continue monitoring kidney function. Primary hypertension -continue metoprolol tartrate 25 mg b.i.d. -monitor blood pressure closely GERD -start pantoprazole 40 mg daily Chronic alcohol abuse -alcohol levels were normal range -thiamine 100 mg daily, folic acid multivitamins -counseled on alcohol use cessation for 22 minutes Goals of care discussed with the patient at bedside for 20 minutes, FULL CODE Plan discussed with Dr. Begum Plan discussed with: Patient, Other (RN) My Orders My Orders Orders - STEPH CAMILO RESIDENT Procedure Category Date Status Time Carotid Duplx W Color US 08/31/24 Resulted DOP 09:37 Brain Head Wo Contrast MRI 08/31/24 Resulted 09:37 Brain Head Wo W MRI 08/31/24 Resulted Contrast 13:31 * Neurology Consult CONS 08/31/24 Transmitted 13:35 Sodium Chloride 0.9% PHA 08/31/24 In Process 14:00 Metoprolol Tartrate PHA 08/31/24 In Process Tablet (Lopressor Ta 22:00 C-Reactive Protein LAB 09/01/24 Logged 07:55 Erythrocyte LAB 09/01/24 Logged Sedimentation Rate 07:55 Addendum Addendum Addendum I was physically present for the manuel portions of the service provided to patient by THE RESIDENT. I have reviewed the documentation, discussed the case with resident and agree with the resident's documentation except as noted. Also the patient's clinical case was discussed with the patient's nurse. This medical document was created using an electronic medical record system with computerized dictation system. Although this document has been carefully reviewed, there might still be some phonetic and typographical errors. These areas are purely typographical due to imperfections of the software programs, and do not reflect any compromise in the patient's medical care. Late signature. Date of Service: Sep 01, 2024 Billing Provider: CARLOS BEGUM MD Common Visit Codes: 22289-[id number] INP/OBS CARE(HIGH) Secondary Visit Codes: 49227-IOSAW CHNG SMOKING >10MIN (Counseled alcohol use cessation 22 minutes), 49143-QFECOZQO CARE PLAN 30 MINUTES (20 minutes) STEPH CAMILO RESIDENT Sep 01, 2024 08:10 CARLOS BEGUM MD September 03, 2024 04:12
[2024-09-01 09:11] LABS: Erythrocyte Sedimentation Rate 18 mm/hr (0-20)
[2024-09-01] MEDS: THIAMINE 100mg/ml INJ (200mg/2ml VIAL) IM SCH (10:41)
[2024-09-01] MEDS: guaiFENesin-DM 100/10mg/5ml SYR PO ONE ×2 (17:07→23:03)
[2024-09-01 23:48] LABS: COVID19 ANTIGEN SOFIA FIA NEGATIVE (NEGATIVE); Rapid Influenza A Negative (Negative); Rapid Influenza B Negative (Negative)
[2024-09-02] VITALS (13 sets, daily range): BP systolic 104–147; BP diastolic 61–92; PULSE 50–89; RESP 17–22; TEMP 97.7–99; O2SAT 90–100
[2024-09-02] MEDS: ALBUTEROL SULF 2.5 MG/0.5ML(0.5%) NEB SOLN NEB SCH (00:32)
--- NOTE | 2024-09-02 08:56 | DVHPNRES ---
Progress Note Date Seen: September 02, 2024 Resident Creating Document: STEPH CAMILO RESIDENT Has the PT tested + for MRSA If YES, has PT been informed?: No Medical Necessity Reason Pt with a Central, PICC or Fol: No Subjective Review of Systems This is a 64-year-old male with past medical history of hypertension, depression, alcohol abuse, who presented to the ED with chief complaint of generalized weakness and fatigue. The patient reports that in the past two days he has been feeling generalized weakness and fatigue that has been unable to stand up from the bed. Patient's speech is very slow and patient is a poor historian. Per ED nurse, patient had also a fall at home and came with bruises in the left upper chest and hands. Patient states very difficult time getting out of the bed to perform activities of daily living. He denies any unilateral weakness, headache, blurry vision, chest pain, shortness of breath or any other symptoms. Upon my examination, patient is having very slow speech but is coherent. Initial chest x-ray was grossly unremarkable and CT scan of the head was unremarkable as well. Patient was admitted for further assessment and management. Patient seen and examined at bedside. Patient still looks weak and slow but states that feels slightly improved compared to admission. Patient now is trying to go to the bathroom by his own taking his time. Spoke with Neurology regarding benign meningioma and they agree conservative management, since probably meningioma is not causing any neurologic deficits or any problems at this time. Continue current medical management and physical therapy. ROS: Constitutional: Reports generalized weakness and fatigue. Denies weight loss, fever and chills. HEENT: Denies changes in vision and hearing. Respiratory: Denies shortness of breath and cough Cardiovascular: Denies chest discomfort or palpitations GI: Denies abdominal pain, nausea, vomiting and diarrhea. : Denies dysuria and urinary frequency. Musculoskeletal: Denies myalgias and joint pain Skin: Denies rash and pruritus. Neurological: Denies dizziness, headache, vision or hearing problems Objective vital signs Vital Sign Date Time Temp Pulse Resp B/P (MAP) Pulse Ox O2 Delivery O2 Flow Rate FiO2 09/02/24 08:39 98.0 89 19 122/61 (81) 94 98.0 09/02/24 00:32 Room Air 0.0 09/02/24 00:32 21 Total Intake and Output 09/01/24 09/01/24 09/02/24 15:00 23:00 07:00 Intake Total 1290 ml 200 ml Output Total 900 ml 300 ml Balance 390 ml -100 ml medications Current Medications Medications Dose Ordered Sig/Alon Route Start Time Stop Time Status Last Admin Dose Admin Folic Acid 1 mg DAILY PO 08/31/24 10:00 09/01/24 10:35 1 MG Atorvastatin Calcium 10 mg HS PO 08/31/24 22:00 09/01/24 21:04 10 MG Pantoprazole Sodium 40 mg DAILY@0600 PO 08/31/24 06:00 09/01/24 05:43 40 MG Chlordiazepoxide HCl 25 mg Q6HPRN PRN PO 08/31/24 01:00 08/31/24 23:56 25 MG Ondansetron HCl 4 mg Q4HP PRN IV 08/31/24 01:00 Acetaminophen 650 mg Q6HP PRN PO 08/31/24 01:00 09/01/24 22:53 650 MG Sodium Chloride 1,000 ml @ 75 mls/hr [id number] IV 08/31/24 14:00 09/02/24 00:03 75 MLS/HR Metoprolol Tartrate 25 mg BID PO 08/31/24 22:00 09/01/24 21:05 25 MG Thiamine HCl 100 mg DAILY IM 09/01/24 10:00 09/01/24 10:41 100 MG Albuterol 2.5 mg Q6HR NEB 09/02/24 00:00 09/02/24 00:32 2.5 MG Examination Physical Examination General: Patient alert and oriented in person, place and time. patient speech is slow and takes a lot of time to think and talk. Patient following commands. HEENT: Normocephalic, atraumatic, moist mucous membranes Respiratory/pulmonary: Clear lungs bilaterally, no associated crackles or wheezes. Cardiovascular: Normal heart sounds S1 and S2 with no associated murmurs Abdomen: Abdomen nondistended, there is no pain to palpation in any of the abdominal quadrants, no palpable masses. Extremities: There is no peripheral edema present at the lower extremities. Peripheral Pulses: 3+ Radial (R). 3+ Radial (L). 3+ Dorsalis pedis (R). 3+ Dorsalis pedis(L) Skin: No rashes or pruritus, there is no sacral edema present at this time. Neurological: Intact cranial nerves with no focal neurologic deficits laboratory and microbiology Laboratory Tests 09/01/24 06:41 Test 09/01/24 06:41 Range/Units Serum Glucose 131 H 74-106 mg/dL Microbiology Date/Time Source Procedure Growth Status 09/01/24 00:05 Nose MRSA Screen - Final Complete Labs and/or images reviewed: Labs reviewed by me, Image(s) reviewed by me Problem List/Assessment/Plan Problem List/Assessment/Plan Assessment/Plan Generalized weakness likely due to intracranial mass Possible right frontal lobe mass consistent with benign meningioma Ruled out ACS -EKG showed sinus rhythm with no significant ST segment elevation or depression or T-wave abnormalities -troponins came back negative -patient denied any chest pain. -initial chest x-ray was grossly unremarkable, showing no evidence of clear consolidations. -initial CT scan of the head showed no evidence of acute ischemic/hemorrhagic stroke -MRI of the brain is showing possible 1.4 X1.5 cm mass lesion along the floor of the right frontal lobe. -ordered MRI of the brain with contrast which showed a 1.6 cm avidly enhancing meningioma along the supraorbital floor of the right anterior cranial fossa. -consulted Neurology for further assessment, per neurology benign meningioma is asymptomatic at this time. -currently on room air saturating 95%. -carotid ultrasound was performed showing no evidence of significant stenosis in neither left or right carotid systems. -patient working with physical therapy LAVERN likely due to vasomotor nephropathy -initial creatinine was 1.21 and BUN 12 -avoid nephrotoxic drugs -IV fluids at 75cc/hr -continue monitoring kidney function. Primary hypertension -continue metoprolol tartrate 25 mg b.i.d. -monitor blood pressure closely GERD -continue pantoprazole 40 mg daily Chronic alcohol abuse -alcohol levels were normal range -thiamine 100 mg daily, folic acid multivitamins Plan discussed with Dr. Begum Plan discussed with: Patient, Other (RN) My Orders My Orders Orders - STEPH CAMILO Procedure Category Date Status Time * [place] CONS 09/01/24 Transmitted Consult Pt Request For Service PT 09/01/24 Logged 11:15 Initiate Vte BRANDON 09/01/24 In Process Prophylaxis 20:39 Complete Blood Count LAB 09/02/24 Logged 05:44 Basic Metabolic Panel LAB 09/02/24 Logged 05:44 Addendum Addendum Addendum I was physically present for the manuel portions of the service provided to patient by THE RESIDENT. I have reviewed the documentation, discussed the case with resident and agree with the resident's documentation except as noted. Also the patient's clinical case was discussed with the patient's nurse. This medical document was created using an electronic medical record system with computerized dictation system. Although this document has been carefully reviewed, there might still be some phonetic and typographical errors. These areas are purely typographical due to imperfections of the software programs, and do not reflect any compromise in the patient's medical care. Late signature. Date of Service: September 02, 2024 Billing Provider: CARLOS BEGUM MD Common Visit Codes: [id number] INP/OBS CARE(HIGH) STEPH CAMILO RESIDENT September 02, 2024 08:56 CARLOS BEGUM MD September 03, 2024 04:14
[2024-09-02 10:04] LABS: Chloride 104 mmol/L (98-107); Potassium 3.8 mmol/L (3.5-5.1); Sodium 138 mmol/L (136-145)
[2024-09-02 10:05] LABS: Anion Gap 9 (5-15); Carbon Dioxide 25 mmol/L (20-31)
[2024-09-02 10:06] LABS: Calcium 9.3 mg/dL (8.7-10.4)
[2024-09-02 10:10] LABS: BUN/Creatinine Ratio 7.4 (10.0-20.0)
[2024-09-02 10:11] LABS: Blood Urea Nitrogen 8 mg/dL (9-23); Glucose 129 mg/dL (74-106)
[2024-09-02 10:12] LABS: Basophils # (auto) 0 10 ^3/uL (0-0.2); Eosinophils # (auto) 0 10 ^3/uL (0-0.8); Eosinophils % (auto) 1.1 % (0.0-7.0); Hematocrit 36.7 % (41.0-53.0); Hemoglobin 12.2 g/dL (13.5-17.5); Lymphocytes # (auto) 0.6 10 ^3/uL (0.4-5.4); Lymphocytes % (auto) 16.3 % (10.0-50.0); Mean Corpuscular Hgb Conc. 33.2 g/dL (32.0-36.0); Mean Corpuscular Volume 87.5 fL (80.0-100.0); Monocytes # (auto) 0.3 10 ^3/uL (0-1.3); Monocytes % (auto) 8.6 % (0.0-12.0); Neutrophils # (auto) 2.8 10 ^3/uL (1.6-8.6); Platelet Count (auto) 320 10^3/uL (140-450); Red Blood Cells 4.19 10^6/uL (4.5-5.90); Red Cell Distribution Width 17.3 % (11.8-14.3); White Blood Cell 3.8 10^3/uL (4.4-10.8)
[2024-09-02] MEDS: guaiFENesin-DM 100/10mg/5ml SYR PO PRN (14:52)
[2024-09-03] VITALS (13 sets, daily range): BP systolic 110–127; BP diastolic 58–79; PULSE 42–52; RESP 16–20; TEMP 97.3–98.2; O2SAT 94–100
[2024-09-03] MEDS: HYDROcodone-ACET 5/325MG TAB PO PRN (01:21)
[2024-09-03] MEDS: MELATONIN 5 MG TAB PO ONE (01:28)
[2024-09-03 08:15] LABS: Basophils # (auto) 0 10 ^3/uL (0-0.2); Basophils % (auto) 1.9 % (0.0-2.0); Eosinophils # (auto) 0.1 10 ^3/uL (0-0.8); Eosinophils % (auto) 2.4 % (0.0-7.0); Hematocrit 35.4 % (41.0-53.0); Hemoglobin 11.7 g/dL (13.5-17.5); Lymphocytes % (auto) 38.9 % (10.0-50.0); Monocytes # (auto) 0.4 10 ^3/uL (0-1.3); Monocytes % (auto) 15.6 % (0.0-12.0); Neutrophils % (auto) 41.2 % (37.0-80.0); Nucleated Red Blood Cells % 0.1 %; Platelet Count (auto) 268 10^3/uL (140-450); Red Blood Cells 4.03 10^6/uL (4.5-5.90); Red Cell Distribution Width 17.7 % (11.8-14.3); White Blood Cell 2.5 10^3/uL (4.4-10.8)
[2024-09-03 08:20] LABS: Anion Gap 10 (5-15); Carbon Dioxide 26 mmol/L (20-31); Sodium 143 mmol/L (136-145)
[2024-09-03 08:22] LABS: Calcium 9.1 mg/dL (8.7-10.4)
[2024-09-03 08:26] LABS: BUN/Creatinine Ratio 8.5 (10.0-20.0); Glucose 103 mg/dL (74-106)
[2024-09-03 08:28] LABS: Blood Urea Nitrogen 8 mg/dL (9-23); Chloride 107 mmol/L (98-107); Potassium 3.4 mmol/L (3.5-5.1)
[2024-09-03] MEDS ORDERED: METO25TA93 PO (09:18)
--- NOTE | 2024-09-03 09:27 | DVHDSRES ---
Discharge Summary Date of Admission Resident Creating Document: STEPH CAMILO RESIDENT Aug 31, 2024 at 00:54 Date of Discharge: September 03, 2024 Admitting Diagnosis Generalized weakness and fatigue Wounds: No Wounds present at this time Labs/Diagnostic Data: Laboratory Results Test 09/03/24 07:33 09/02/24 09:00 09/01/24 22:50 09/01/24 06:41 White Blood Count 2.5 10^3/uL (4.4-10.8) Red Blood Count 4.03 10^6/uL (4.5-5.90) Hemoglobin 11.7 g/dL (13.5-17.5) Hematocrit 35.4 % (41.0-53.0) Mean Corpuscular Volume 88.0 fL (80.0-100.0) Mean Corpuscular Hemoglobin 29.0 pg (28.0-32.0) Mean Corpuscular Hemoglobin Concent 33.0 g/dL (32.0-36.0) Red Cell Distribution Width 17.7 % (11.8-14.3) Platelet Count 268 10^3/uL (140-450) Mean Platelet Volume 7.6 fL (6.9-10.8) Neutrophils (%) (Auto) 41.2 % (37.0-80.0) Lymphocytes (%) (Auto) 38.9 % (10.0-50.0) Monocytes (%) (Auto) 15.6 % (0.0-12.0) Eosinophils (%) (Auto) 2.4 % (0.0-7.0) Basophils (%) (Auto) 1.9 % (0.0-2.0) Neutrophils # (Auto) 1.0 10 ^3/uL (1.6-8.6) Lymphocytes # (Auto) 1.0 10 ^3/uL (0.4-5.4) Monocytes # (Auto) 0.4 10 ^3/uL (0-1.3) Eosinophils # (Auto) 0.1 10 ^3/uL (0-0.8) Basophils # (Auto) 0 10 ^3/uL (0-0.2) Nucleated Red Blood Cells 0.1 % Sodium Level 143 mmol/L (136-145) Potassium Level 3.4 mmol/L (3.5-5.1) Chloride Level 107 mmol/L (98-107) Carbon Dioxide Level 26 mmol/L (20-31) Anion Gap 10 (5-15) Blood Urea Nitrogen 8 mg/dL (9-23) Creatinine 0.94 mg/dL (0.700-1.30) Glomerular Filtration Rate Calc 91 mL/min (>90) BUN/Creatinine Ratio 8.5 (10.0-20.0) Serum Glucose 103 mg/dL (74-106) Calcium Level 9.1 mg/dL (8.7-10.4) B-Type Natriuretic Peptide 49.89 pg/mL (0-100) Influenza Type A Antigen Negative (Negative) Influenza Type B Antigen Negative (Negative) SARS-CoV-2 Antigen (Rapid) Negative (NEGATIVE) Erythrocyte Sedimentation Rate 18 mm/hr (0-20) C-Reactive Protein High Sensitivity 0.80 mg/dL (<1.0) Test 08/31/24 11:25 08/31/24 10:00 08/31/24 08:59 08/31/24 02:42 Urine Color Yellow (Yellow) Urine Clarity Clear (Clear) Urine pH 5.0 (5.0-9.0) Urine Specific [place] 1.015 (1.001-1.035) Urine Protein Negative (Negative) Urine Ketones Negative (Negative) Urine Blood Negative /uL (Negative) Urine Nitrite Negative (Negative) Urine Bilirubin Negative (Negative) Urine Urobilinogen Normal mg/dL (Negative) Urine Leukocyte Esterase Negative /uL (Negative) Urine RBC 1 /hpf (0 - 3) Urine Microscopic WBC < 1 /HPF (0-3) Urine Squamous Epithelial Cells Few /hpf (<5) Urine Bacteria None seen /hpf (None Seen) Urine Mucus Few (None Seen) Urine Glucose Normal mg/dL (Normal) Urine Opiates Screen Neg (NEGATIVE) Urine Fentanyl Screen Neg (NEGATIVE) Urine Barbiturates Screen Neg (NEGATIVE) Urine Phencyclidine Screen Neg (NEGATIVE) Urine Amphetamines Screen Neg (NEGATIVE) Urine Benzodiazepines Screen Pos (NEGATIVE) Urine Cocaine Screen Neg (NEGATIVE) Urine Cannabinoids Screen Neg (NEGATIVE) Ammonia < 10 umol/L (11-32) Differential Total Cells Counted 100.0 (100) Neutrophils % (Manual) 66 (37.0-80.0) Band Neutrophils % (Manual) 1 Lymphocytes % (Manual) 19 (10.0-50.0) Monocytes % (Manual) 14 (0-12) Eosinophils % (Manual) 0 (0-7) Basophils % (Manual) 0 (0.0-2.0) Metamyelocytes % (manual) 0 Myelocytes % (Manual) 0 Promyelocytes % (Manual) 0 Blast Cells % (Manual) 0 Reactive Lymphocytes 0 Platelet Estimate Adequate Vitamin B12 Level 3426 pg/mL (211-911) Vitamin D 25-Hydroxy 35.1 ng/mL (30.0-100) Folic Acid 21.62 ng/mL (>5.38) POC Glucose 83 mg/dl (70-106) Test 08/30/24 22:20 08/30/24 21:35 Magnesium Level 2.0 mg/dL (1.6-2.6) Troponin I High Sensitivity 4 ng/L (</=54) Plasma/Serum Blood Alcohol < 3.0 mg/dL (<10) Other Laboratory Tests 09/03/24 07:33 Brief Hx & Hospital Course: This is a 64-year-old male with past medical history of hypertension, depression, alcohol abuse, who presented to the ED with chief complaint of generalized weakness and fatigue. The patient reports that in the past two days he has been feeling generalized weakness and fatigue that has been unable to stand up from the bed. Patient's speech is very slow and patient is a poor historian. Per ED nurse, patient had also a fall at home and came with bruises in the left upper chest and hands. Patient states very difficult time getting out of the bed to perform activities of daily living. He denies any unilateral weakness, headache, blurry vision, chest pain, shortness of breath or any other symptoms. Upon my examination, patient is having very slow speech but is coherent. Initial chest x-ray was grossly unremarkable and CT scan of the head was unremarkable as well. We will perform a brain MRI which was showing a right frontal lobe small benign meningioma. We consulted Neurology and they stated that this was an incident finding that he is currently not producing any neurologic deficits. Today, patient was seen and examined at bedside patient is currently working with physical therapy and is gaining slightly more strength compared to admission. Patient stated that feels much better compared to admission but is still having some fatigue. Patient is able to walk by his own from the bed all the way to the bathroom and is currently working with physical therapy longer distances. Patient has no complaints at this time and denies chest pain, shortness of breath, fever/chills, abdominal pain or any other symptom or concern aside from fatigue and minimal weakness at this point. We will discharge the patient to home with home health services for physical therapy and rehab. Patient agreed and understood the plan. ROS: Constitutional: Reports feeling minimal weak and fatigued but better compared to admission. Denies weight loss, fever and chills. HEENT: Denies changes in vision and hearing. Respiratory: Denies shortness of breath and cough Cardiovascular: Denies chest discomfort or palpitations GI: Denies abdominal pain, nausea, vomiting and diarrhea. : Denies dysuria and urinary frequency. Musculoskeletal: Denies myalgias and joint pain Skin: Denies rash and pruritus. Neurological: Denies dizziness, headache, vision or hearing problems Physical Examination on discharge: General: Patient alert and oriented in person, place and time. patient speech is slow and takes a lot of time to think and talk. patient looks stronger compared to admission and able to ambulate without complications. Patient following commands. HEENT: Normocephalic, atraumatic, moist mucous membranes Respiratory/pulmonary: Clear lungs bilaterally, no associated crackles or wheezes. Cardiovascular: Normal heart sounds S1 and S2 with no associated murmurs Abdomen: Abdomen nondistended, there is no pain to palpation in any of the abdominal quadrants, no palpable masses. Extremities: There is no peripheral edema present at the lower extremities. Peripheral Pulses: 3+ Radial (R). 3+ Radial (L). 3+ Dorsalis pedis (R). 3+ Dorsalis pedis(L) Skin: No rashes or pruritus, there is no sacral edema present at this time. Neurological: Intact cranial nerves with no focal neurologic deficits Discussed with Dr. Begum Consults/Reason for consult Neurology for intracranial mass Operations or Procedures CHEST RADIOGRAPH Indication: weakness Technique: Single frontal view of the chest was obtained COMPARISON: XY CHEST XRAY 1 VIEW on DOS: 08/21/24 FINDINGS: Lines and Tubes: None Lungs: Clear Pleura: No effusion. No pneumothorax. Cardiomediastinal contours: Unremarkable IMPRESSION: No acute disease. EXAM: CT HEAD WITHOUT CONTRAST INDICATION: Generalized Weakness TECHNIQUE: CT of the head without intravenous contrast. Radiation Dose Information: CT Dose: CTDI volume is 55.86 mGy. Dose-length product is 895.49 mGy*cm The dose indicators for CT are the volume Computed Tomography (CT) Dose Index (CTDIvol) and the Dose Length Product (DLP), and are measured in units of mGy and mGy-cm, respectively. These indicators are not patient dose, but values generated from the CT scanner acquisition factors. The report includes radiation exposure data for exposures received during this examination. COMPARISON: None FINDINGS: There is no evidence of acute intracranial hemorrhage, extra-axial collection, mass effect, midline shift, herniation or hydrocephalus. The ventricles, sulci and cisterns are age appropriate. The crowder-white differentiation is intact. Patchy periventricular and subcortical white matter hypoattenuation is nonspecific but may be related to small vessel ischemic disease. The visualized paranasal sinuses and mastoid air cells are clear. The surrounding soft tissues and osseous structures are unremarkable. IMPRESSION: 1. No acute intracranial abnormality. MRI BRAIN HEAD WO CONTRAST INDICATION: R/O ISCHEMIC/HEMORRHAGIC STROKE : 64 old Male R/O ISCHEMIC/HEMORRHAGIC STROKE EXAM DATE: 08/31/2024 12:14 PM COMPARISON: None PROCEDURE: Using a 1.5 Sarika scanner, multisequence multiplanar imaging of the brain was obtained. FINDINGS: Possible 1.4 x 1.5 cm mass lesion along the floor of the right frontal lobe. The brain otherwise shows normal morphology and signal characteristics. No abnormal T2 hyperintensity, diffusion restriction, or susceptibility hypointensity is present. The ventricles are normal in size. The midline structures are intact. The major intracranial flow voids are present. The aerated spaces are normal. The orbital contents and extracranial soft tissues appear normal. IMPRESSION: Possible 1.4 x 1.5 cm mass lesion along the floor of the right frontal lobe. Recommend MRI brain with contrast for further evaluation. Meningioma is a consideration. No acute MRI abnormality of the brain. Carotid Duplex Date: 08/31/2024 11:26 AM Clinical History: R/O SIGNIFICANT STENOSIS Comparison: None Technique: Duplex Doppler evaluation of the extracranial carotid and vertebral arteries including color Doppler and spectral/pulsed waveform analysis was performed. Findings: Velocities and ratios within normal limits IMPRESSION: No hemodynamically significant stenosis noted in the right carotid system. No hemodynamically significant stenosis noted in the left carotid system. MRI BRAIN WITH CONTRAST CLINICAL HISTORY: possible frontal lobe mass on normal MRI brain TECHNIQUE: Multi planar, multi sequence postcontrast MR images of the brain. 10 cc of gadavist contrast from a prefilled syringe was administered intravenously. Comparison: MRI BRAIN HEAD WO CONTRAST on DOS: 08/31/24 FINDINGS: There is a 1.6 cm avidly enhancing extra-axial nodule along the supraorbital floor of the right anterior cranial fossa consistent with the meningioma. There is a small dural tail. There is adjacent cortical buckling. There are no parenchymal signal changes to suggest edema. IMPRESSION: 1. 1.6 cm avidly enhancing meningioma along the supraorbital floor of the right anterior cranial fossa. Condition at Discharge: Stable Final Diagnosis/Problems List Generalized weakness likely due to medication/drug induce Possible right frontal lobe mass, likely due to benign meningioma Ruled out [facility] LAVERN likely due to vasomotor nephropathy Primary hypertension GERD Chronic alcohol abuse Tobacco use disorder Discharge Disposition: Home (Declined home health services including home PT) Discharge Instruct/Medications Diet: Regular Activity: No Restrictions, As Tolerated Follow Up/Referral: F/U with his PCP in 1 week F/U with discharge clinic Medications: Stop metoprolol tartrate 25 mg due to bradycardia; continue rest of home medications Discharge Statement: "Patient was advised to return to the ER or call 911 if any headaches, dizziness, shortness of breath, chest pain, abdominal pain, bleeding, fevers, or worsening of medical condition. Patient was counseled about treatment plan, medications, possible side effects, patient�verbalized understanding. All questions were answered to the best of my ability. This discharge took greater then 30 minutes in planning, reviewing documentation, counseling the patient, and discussing with other team members." ASSESSMENT ASSESSMENT Assessment Generalized weakness likely due to intracranial mass Possible right frontal lobe mass Ruled out ACS LAVERN likely due to vasomotor nephropathy Primary hypertension GERD Chronic alcohol abuse Tobacco use disorder Addendum Addendum Addendum I was physically present for the manuel portions of the service provided to patient by THE RESIDENT. I have reviewed the documentation, discussed the case with resident and agree with the resident's documentation except as noted. Also the patient's clinical case was discussed with the patient's nurse. This medical document was created using an electronic medical record system with computerized dictation system. Although this document has been carefully reviewed, there might still be some phonetic and typographical errors. These areas are purely typographical due to imperfections of the software programs, and do not reflect any compromise in the patient's medical care. Late signature. Date of Service: September 03, 2024 Billing Provider: CARLOS BEGUM MD Common Visit Codes: 24892-TWX/OBS DISCH DAY >30min STEPH CAMILO RESIDENT September 03, 2024 09:27 CARLOS BEGUM MD September 04, 2024 10:29
[2024-09-03] MEDS: POTASSIUM EFFERVESENT TAB 25 MEQ PO ONE (11:43)
[2024-09-03] MEDS ORDERED: MELATONIN 5 MG TAB PO SCH (22:00)
--- NOTE | 2024-09-04 00:17 | DVHEEG2 ---
Neurology EEG Procedural Note Procedural Note EXAM DATE: 09/02/2024 REFERRING DOCTOR: Dr. Boss TECHNIQUE: Eighteen channels of EEG, 2 channels of EOG, and 1 channel of EKG were recorded using the [employer] 10/20 system. CLINICAL DATA: The patient was referred for an EEG evaluation for the evidence of seizure disorder. MEDICATIONS: See the chart BACKGROUND ACTIVITY: There was significant amount of artifacts in the recording. While the patient was awake, the background activity consisted of fairly regulated 8-9 Hz rhythmic waveforms, symmetrically distributed over both posterior quadrants and was reactive to eye opening. ACTIVATION: Hyperventilation: Not done Photic Stimulation: Not done Sleep: Not seen IMPRESSION: This is a normal EEG. No focal, lateralized, or epileptiform features are noted. If clinically indicated to rule out a seizure disorder, recommend repeat EEG with sleep deprivation. The EKG channel showed a regular heart rate of 60/[place] [address] ANNITA BOSS MD September 04, 2024 00:17
== END 2024-09-03 16:20 | disposition home or self-care (01) | DRG 58 ==
LOC: EDBD 20:09 → ER 20:09 → OVERFLOW 08-31 00:54 → WEST WING 08-31 23:03
PROVIDERS: ADMIT Internal Medicine; ATTEND Emergency Medicine
DX: D32.0 Benign neoplasm of cerebral meninges (principal); N17.0 Acute kidney failure with tubular necrosis; I10 Essential (primary) hypertension; K21.9 Gastro-esophageal reflux disease without esophagitis; Z20.822 Contact with and (suspected) exposure to COVID-19; F10.139 Alcohol abuse with withdrawal, unspecified; G89.29 Other chronic pain; F17.210 Nicotine dependence, cigarettes, uncomplicated; R26.9 Unspecified abnormalities of gait and mobility; Z79.899 Other long term (current) drug therapy; Y90.9 Presence of alcohol in blood, level not specified; T50.995A Adverse effect of other drugs, medicaments and biological substances, initial encounter
CPT/HCPCS: 36415; 70450; 70551; 70553; 71045; 80048; 80307; 80320; 81001; 82140; 82306; 82607; 82746; 82962; 83735; 83880; 84484; 85007; 85025; 85027; 85652; 86141; 87040; 87081; 87426; 87804; 93005; 93886; 94640; 95819; 97163; G0378; J2405